=== PATIENT | female | born 1955 | race Caucasian/White ===

== ENCOUNTER 2023-12-24 13:45 | Inpatient (IN) | payer MEDICARE, SELFPAY ==
[2023-12-24] VITALS (12 sets, daily range): BP systolic 98–141; BP diastolic 35–85; BMI 35.5
[2023-12-24 08:41] LABS: % Basophils 0.4 % (0-2); % Eosinophils 0.4 % (0-6); % Immature Granulocytes 0.7 % (0-0.5); % Lymphocytes 19.5 % (20.5-51.1); % Monocytes 8.2 % (1.7-9.3); % Neutrophils 70.8 % (42.2-75.2); Absolute Basophils 0.1 10^3/uL (0-0.2); Absolute Eosinophils 0.1 10^3/uL (0-0.7); Absolute Immature Granulocytes 0.1 10^3/uL (0-0.05); Absolute Lymphocytes 2.2 10^3/uL (1.2-3.4); Absolute Monocytes 0.9 10^3/uL (0.1-0.6); Absolute Neutrophils 8.1 10^3/uL (1.4-6.5); Hematocrit 43.1 % (37.0-47.0); Hemoglobin 14.4 g/dL (12.0-16.0); Mean Corp Hgb Conc. 33.4 g/dL (33.0-37.0); Mean Corpuscular Hgb 29.7 pg (27.0-31.0); Mean Corpuscular Volume 88.9 fL (81.0-99.0); Mean Platelet Volume 8.1 fL (7.4-10.4); Nucleated Red Blood Cells % 0 %; Platelet Count 260 10^3/uL (130-400); Red Blood Cell Count 4.85 10^6/uL (4.20-5.40); Red Cell Dist. Width 12.1 % (11.5-14.5); White Blood Cell Count 11.5 10^3/uL (4.8-10.8)
--- NOTE | 2023-12-24 08:48 | ED.GENMED ---
History of Present Illness
General
Chief Complaint: Flank Pain
Source: patient
Time Seen by Provider: 12/24/23 08:16
Travel History
Have you had any contact with someone who has COVID-19?: No
Do you have any symptoms of coronavirus? Fever > 100 degrees, chills, cough, shortness of breath, sore throat, loss of taste or smell, muscle aches, or headache?: No
History of Present Illness
History of Present Illness:
Six 8-year-old female left flank pain for the past several days. She was seen at [facility] emergency department and had a negative CT abdomen pelvis noncontrast, and an unremarkable urinalysis. He was discharged with no further. Patient had fever
100.4 yesterday.
Past History
Past History
ED Past Medical History: GERD, HTN, Other (Diverticulosis, arthritis, anxiety, depression, UTI, GERD) and Other (Patent foramen ovale)
ED Past Surgical History: Gynecological, Orthopedic, Tonsilectomy and Other (Breast reduction, hysterectomy)
Social History
Tobacco: Non-smoker
Alcohol: None
Drug: None
Living: with family
Family History
Family History: Other (Noncontributory); Negative CAD or Cancer
Phy Exam
Physical Exam
Physical Exam:
Physical Exam
General: Appears uncomfortable, temperature 99.4 have a
Neck: supple. no meningeal signs. normal posterior pharynx
Heart: s1/s2 regular rate and rhythm, no murmur. equal radial
pulses.
HEENT: Pupils equal round reactive to light, EOMI
Lungs: no acute respiratory distress. clear bilaterally
Abdomen: normal bowel sounds. not tender. no CVAT
Neuro: alert and oriented. no focal neurological deficits cranial nerves II through XII intact
Skin: no rash
Psychiatric: well kept. interactive and cooperative
Extremities: no edema. no calf tenderness. negative homans. good distal pulses
Course
Orders/Labs/Results
Orders:
Orders
12/24/23 08:33
Complete Blood Count/With Diff Urgent
12/24/23 08:47
CT Abd/pel W Iv And Oral Contr Urgent
Comment:
Reason For Exam: left side abdominal pain, fever
Iohexol [Omnipaque] See Protocol PO NOW STA
12/24/23 09:00
Comprehensive Metabolic Panel Urgent
12/24/23 09:43
Morphine Sulfate 4 mg IV NOW STA
Ondansetron Injectable [Zofran] 4 mg IV NOW STA
12/24/23 09:57
Urinalysis Reflex To Culture Urgent
Date Specimen was Collected: 12/24/23
Time Specimen was Collected: 09:40
Urine Microscopic Reflex Cult Urgent
12/24/23 11:55
Morphine Sulfate 4 mg IV NOW STA
12/24/23 12:11
Heparin 8,000 units IV NOW STA
12/24/23 12:12
PTT Urgent
Comment: Obtain baseline before beginning heparin infusion if not already collected
Nursing to Place Non Medication Order As Directed
Physician Order: PTT 6 hours after initial start of Heparin infusion
12/24/23 12:15
Heparin 85414 Units/250 ml 25,000 units in 250 ml IV PER PROTOCOL
Weight to be used for heparin protocol in kilograms (kg):: 99.6
Protocol:: Vascular Surgery
PTT Goal Range to be used:: PTT 73 to 111 seconds
Order type:: Initial
INITIAL Infusion Dose (UNITS/KG/hr) & then follow protocol:: 18 units/kg/hr
Infusion Dose in UNITS/hr & then follow protocol (UNITS/hr):: 1,800
INFUSION RATE in mL/hr & then follow protocol (mL/hr):: 18
PTT less than or equal to 64 seconds:: Notify Ordering Provider. obtain orders for rate increase &
possible bolus
PTT 64.1 to 72.9 seconds:: Increase rate by 100 units/hr (+ 1 mL/hr)
PTT 73 to 111 seconds:: Target Range. No change in rate.
PTT 111.1 to 130.9 seconds:: Decrease rate by 100 units/hr (- 1 mL/hr)
PTT 131 to 199.9 seconds:: HOLD for 1 hour. Then decrease rate by 200 units/hr (- 2 mL/hr)
PTT greater than or equal to 200 seconds:: STOP INFUSION. Notify Ordering provider to obtain further orders.
Lab follow-up:: Each change, PTT q6h until 2 consecutive are therapeutic. Then PTT
daily.
Abnormal Lab Results
12/24/23 12/24/23 12/24/23
08:33 09:00 09:57
WBC 11.5 H 10^3/uL
(4.8-10.8)
Abs Immat Gran (auto) 0.1 H 10^3/uL
(0-0.05)
Absolute Neuts (auto) 8.1 H 10^3/uL
(1.4-6.5)
Absolute Monos (auto) 0.9 H 10^3/uL
(0.1-0.6)
Immature Gran % 0.7 H %
(0-0.5)
Lymphocytes % 19.5 L %
(20.5-51.1)
Chloride 109 H mmol/L
(98-107)
Glucose 102 H mg/dl
(70-99)
AST 52 H U/L
(14-36)
ALT 39 H U/L
(0-35)
Leukocyte Esterase Rfl Trace A
(Negative)
12/24/23 08:33
12/24/23 09:00
Vital Signs
Initial and Last Documented VS:
Initial Vital Signs
Temp Pulse Resp BP Pulse Ox
99.4 F 74 16 134/79 98
12/24/23 08:10 12/24/23 08:10 12/24/23 08:10 12/24/23 08:10 12/24/23 08:10
Last Documented Vital Signs
Temp Pulse Resp BP Pulse Ox
99.4 F 52 14 136/85 92
12/24/23 08:10 12/24/23 12:03 12/24/23 12:03 12/24/23 12:03 12/24/23 11:45
MDM/Problems Addressed
Differential Diagnosis Includes:
Kidney stone, diverticulitis, renal infarction
MDM/Problems Addressed:
68-year-old female with left renal infarction, history of PFO. Discussed with Dr. Cortez, vascular surgery, recommends admission for embolic workup to include CTA and echocardiogram. IV heparin.
Chronic conditions affecting care: Cardiomyopathy (PFO)
Acute Exacerbation and/or Progression of Chronic Illness: Cardiomyopathy (PFO)
*Radiology
Radiology exam reviewed: radiology read reviewed (CT abdomen pelvis shows left renal infarction)
*Pulse Oximetry
Patient hypoxic: no
*EKG
Interpreted by ED Provider?: NA
*Plug Paster Interpretation
Rate: normal
Interpretation: normal
Heart Rate: 75
Rhythm: sinus
*Critical Care Note
Total Time (30-74mins, 75-104mins- exclusive of procedures): 30
comment:
Critical care statement: A total of 30 minutes of critical care time was provided for this patient. This includes management of unstable vital signs, evaluation of the patient at bedside, reviewing the patient's pertinent medical records, discussion
with consultants, review of old EKGs and review of pertinent medical records. This time with separate from time utilized to perform the aforementioned documented procedures
Data Reviewed
Review of Other/Old Records Reveals: Radiology Studies (CT abdomen pelvis noncontrast performed at [facility] 2 days ago, negative)
Source: patient
Patient Management
Social determinants of health affecting care: Living situation
Discussion with other providers: Hospitalist and Handcrew Foreman (Vascular surgeon)
Escalation/DeEscalation of care consider admission/obs:
Admit indicated
ED Attending Note
-
Portions of this chart may have been created with voice recognition software.� Occasional wrong word or��sound alike� substitutions may have occurred due to the inherent limitations of voice recognition software.
Discharge Plan
Departure
Patient Disposition: Admit
Date of Disposition: 12/24/23
Time of Disposition: 11:57
Admit to: Telemetry
Presentation/result/management discussed w/ accepting MD/DO: Hospitalist
Patient with high blood pressure during this ER visit?: Yes
Condition: Good
Discharge Problem:
Renal infarction
Prescriptions:
No Action
topiramate 100 MG tablet
200 mg PO HS
citalopram 20 MG tablet
20 mg PO HS
trazodone 100 MG tablet
200 mg PO HS
albuterol sulfate 2.5 mg /3 mL (0.083 %) solution for nebulization
2.5 mg inhalation R Q6 PRN (Reason: sob/wheezing)
amlodipine 5 mg Tablet
7.5 mg PO HS
Rx Instructions:
TAKEN W/ 2.5MG = 7.5MG
Arnuity Ellipta 100 mcg/actuation blister with device
1 inh INHALATION R DAILY
metformin 500 mg tablet
500 mg PO DAILY
gabapentin 600 mg tablet
600 mg PO HS
pravastatin 40 mg tablet
40 mg PO HS
calcium carbonate-vitamin D3 [Calcium + D] 600 mg-5 mcg (200 unit) Tablet
1 tab PO BID
omeprazole 40 mg capsule,delayed release(DR/EC)
40 mg PO DAILY
aspirin 81 mg Tablet,Chewable
81 mg PO DAILY
ergocalciferol (vitamin D2) 1,250 mcg (50,000 unit) capsule
1,250 unit PO MO
ezetimibe 10 mg tablet
10 mg PO HS
Referrals:
Bradly Brown DO [Family Provider] -
Interventions
Interventions:
*General Assessment Last Done: 12/24/23 09:28
*Neglect/Abuse Screening Last Done: 12/24/23 10:21
ED- Fall Risk Assessment Last Done: 12/24/23 09:28
*ED COVID-19 Vaccine History Last Done: 12/24/23 08:10
XT-Bnsepu-Kxfbefbamd Assessment Last Done: 12/24/23 09:28
ED-Female Genitourinary Assessment Last Done: 12/24/23 09:28
Discharge Date and Time
Print Language: KAZAKH
[2023-12-24] MEDS: OMNIPAQUE 50 ML PO (08:57)
[2023-12-24 09:26] LABS: ALT (SGPT) 39 U/L (0-35); AST (SGOT) 52 U/L (14-36); Albumin 4.8 g/dl (3.5-5.0); Alkaline Phosphatase 66 U/L (38-126); Blood Urea Nitrogen 16 mg/dl (7-17); Calcium 9.7 mg/dl (8.4-10.2); Carbon Dioxide 22 mmol/L (22-30); Chloride 109 mmol/L (98-107); Glucose 102 mg/dl (70-99); Potassium 4.1 mmol/L (3.5-5.1); Sodium 136 mmol/L (135-145); Total Bilirubin 0.7 mg/dl (0.2-1.3); Total Protein 7.6 g/dl (6.3-8.2); eGFR > 60.00
[2023-12-24] MEDS: ZOFRAN 4 MG IV ×2 (09:52→16:55)
[2023-12-24] MEDS: MORPHINE SULFATE 4 MG IV ×2 (09:53→12:56)
[2023-12-24 10:09] LABS: Urine Albumin Negative (Neg - Trace); Urine Bilirubin Negative (Negative); Urine Character Clear (Clear); Urine Color Yellow; Urine Glucose Negative (Negative); Urine Ketone Negative (Negative); Urine Leukocyte Trace (Negative); Urine Nitrite Negative (Negative); Urine Occult Blood Negative (Negative); Urine Urobilinogen Negative (Neg - 1+)
[2023-12-24 10:43] LABS: Urine Red Blood Cell 0-2 /HPF (0-2)
--- NOTE | 2023-12-24 12:22 | HPS.HSE ---
Family Physician
-
Family Physician: Bradly Brown
Chief Complaint
-
left flank pain
History of Present Illness
68 year old with PMH for peripheral artery disease, diverticulitis, sigmoid colon abscess, GERD, patent foramen ovale, asthma, depression presented to us with left flank pain for past few days. Patient also complained of left-sided abdominal pain
associate with nausea. Patient denied any vomiting, diarrhea. Patient stated fever of 100.4. Took Tylenol. Patient also took Advil, with no relief in his symptoms. Patient also complaining of headache. Denies dizziness or syncopal episode
patient denied runny nose,. Cough. Patient denied any dysuria, hematuria.
CT abdomen pelvis with impression of 3 cm acute/subacute infarct in the posterior interpolar aspect of the left kidney. No evidence of diverticulitis. There is rectosigmoid anastomosis.
Patient started on heparin drip. Vascular surgery consult
Medical History
Past Medical History
Past Medical History: Reports Other
Additional Past Medical History:
peripheral artery disease, diverticulitis, sigmoid colon abscess, GERD, patent foramen ovale, asthma, depression
Past Surgical History: Reports Other
Additional Past Surgical History:
Tonsillectomy
Breast reduction
Hysterectomy
Bowel resection
Right knee replacement
Multiple bilateral ankle surgeries
Social History
Tobacco: Non-smoker
Alcohol: None
Drug: None
Family History
Family History: Not pertinent
Allergies / Home Medications
Allergies reflects when Allergies were last updated in [employer].
Home Medications with original date entered in [employer]
Allergy/Medication List:
Allergies
Allergy/AdvReac Type Severity Reaction Status Date / Time
pollen extracts Allergy SEASONAL-CO Verified 12/24/23 08:13
UGHING
Home Medications
topiramate 100 mg tablet 100 mg PO HS Neurological Condition 04/24/12
citalopram 20 mg tablet 20 mg PO HS Mental Health/Anxiety 07/05/18
trazodone 100 mg tablet 200 mg PO HS Sleep 07/05/18
albuterol sulfate 2.5 mg/3 mL (0.083 %) solution for nebulization 2.5 mg inhalation R Q6 PRN sob/wheezing 07/16/22
amlodipine 5 mg tablet 5 mg PO HS Blood pressure 07/16/22
fluticasone furoate 100 mcg/actuation blister powder for inhalation (Arnuity Ellipta) 1 inh inhalation R DAILY Lung/breathing issues 07/16/22
aspirin 81 mg chewable tablet 81 mg PO DAILY 12/24/23
calcium carbonate 600 mg-vitamin D3 5 mcg (200 unit) tablet 1 tab PO BID 12/24/23
ergocalciferol (vitamin D2) 1,250 mcg (50,000 unit) capsule 1,250 unit PO MO Supplement 12/24/23
ezetimibe 10 mg tablet 10 mg PO HS 12/24/23
gabapentin 600 mg tablet 600 mg PO HS 12/24/23
metformin 500 mg tablet 500 mg PO DAILY 12/24/23
omeprazole 40 mg capsule,delayed release 40 mg PO DAILY 12/24/23
pravastatin 40 mg tablet 40 mg PO HS 12/24/23
Review of Systems
-
Constitutional: Reports No Symptoms
EENT: Reports No Symptoms
Respiratory: Reports No Symptoms
Cardiac: Reports No Symptoms
Abdomen/GI: Reports Abdominal Pain and Nausea
: Reports Flank Pain
Musculoskeletal: Reports No Symptoms
Skin: Reports No Symptoms
Neurological: Reports No Symptoms
Endocrine: Reports No Symptoms
Hematologic/Lymphatic: Reports No Symptoms
Psych: Reports No Symptoms
Physical Exam
Vital Signs
Vital Signs
Temp Pulse Resp BP Pulse Ox
99.4 F 52 14 136/85 92
12/24/23 08:10 12/24/23 12:03 12/24/23 12:03 12/24/23 12:03 12/24/23 11:45
Physical Exam
General: Well Developed, Well Nourished and No Apparent Distress
HEENT: NormoCephalic, Moist mucous membranes and Atraumatic
Respiratory: Clear
Cardiac: S1/S2 and Regular Rhythm; No Murmur or Rub
GI: Soft, Non Tender, Non Distended and Normal Bowel Sounds; No Organomegaly
Rectal: Deferred by Provider
Musculoskeletal: No Clubbing, No Cyanosis and No Edema
Skin: No Rash
Neuro: AO x 3 and Nonfocal/grossly intact
Psych: Calm
Laboratory Results
-
12/24/23 08:33
12/24/23 09:00
Laboratory Results
Total Bilirubin 0.7 mg/dl (0.2-1.3) 12/24/23 09:00
AST 52 U/L (14-36) H 12/24/23 09:00
ALT 39 U/L (0-35) H 12/24/23 09:00
Alkaline Phosphatase 66 U/L (38-126) 12/24/23 09:00
Data Reviewed
-
CT Scan: Report Reviewed by me
Lab Data: Labs Reviewed by me
Impression/Plan
-
#left renal infract
-CT of abdomen pelvis with impression of 3 cm acute/subacute renal infarct in the posterior interpolar aspect of the left kidney.Diverticuli are present in the colon with no CT evidence of diverticulitis.There is rectosigmoid anastomosis
-Heparin infusion continued
-Vascular surgery consulted
-will obtain CT chest tomorrow
-Dilaudid prn for pain
#leukocytosis likely stress reaction
-UA negative.
-ctm
# LFT elevation
-AST 52, ALT 39
-trend LFT
-continue to monitor
# History of PFO
-follows cardiology at [facility]
-cardiology consulted
# History of asthma
-Not in acute exacerbation
-Nebulizers from home will be continued
-Breo continued
# GERD
-PPI continued
# Essential hypertension
-Blood pressure stable
-Norvasc continued
# History of anxiety and depression/insomnia
-We will continue citalopram trazodone and Topamax
# Hyperlipidemia
-Zetia continued
-Pravastatin continued
# Type 2 diabetes
-Hold metformin
-Sliding scale
-Carb controlled diet
# Full code
# DVT prophylaxis
-Heparin drip
[2023-12-24] MEDS: HEPARIN 8000 UNITS IV (12:57)
[2023-12-24] MEDS: HEPARIN 25000 UNITS/250 ML IV (12:59)
[2023-12-24 13:26] LABS: APTT 27.8 Sec (23.4-35.0)
--- NOTE | 2023-12-24 13:26 | W.PN.UPDATE ---
Update Note
Progress Note Update
Seen and examined and discussed with nurse practitioner in detail I am in agreement with plan and management mentioned by physician housing assistant property manager
Seen and examined, awake and alert, complaining of left flank pain, started earlier, denies any any chest pain or shortness of breath or cough or congestion, she has been having on and off fever, CT showed left renal infarction. She does have known
history of PFO diagnosed a year ago.
Vital signs reviewed
Physical exam:
General: Awake, alert and oriented x3, not in distress and holds appropriate conversation.
HEENT: No active discharge, ecchymosis or bruising, moist lips, tongue and mucous membrane.
Eyes: No discharge or red conjunctiva, no nystagmus, pupils are reactive and equal
Neck:Supple, no JVD no bruit no goiter.
Respiratory: Normal AP contour and diameter, normal chest wall movement, normal respiratory effort, no respiratory distress,
Lungs: Good air entry bilaterally, no wheezing or rhonchi, no rales or crackles
Heart: S1, S2 regular, normal rate, no added sound.
Gastrointestinal: Left side and left flank tenderness, positive bowel sounds, soft, nontender, no guarding or rigidity or organomegaly
Musculoskeletal: , no chest wall abnormality or tenderness. All joints and extremities have good range of motion, no muscle tenderness or any joint swelling or tenderness.
Extremities: No pitting edema, good peripheral pulses, good range of motion
Skin: Warm and dry, no ulceration, normal color.
Neurological: Awake, alert and oriented x3, no facial droop, moves extremities well speech clear and comprehensive, good muscle tone,
Psychiatric: Normal mood, normal thought and judgment, normal affect,
Workup including labs, imaging, EKG and archive reviewed.
Assessment and plan:
Renal infarction, with known history of PFO,
Vascular contacted they recommended heparin drip and get a CTA chest will get a CT [address] abdominal pelvis using IV contrast
IV fluid
Pain medication with Dilaudid
Monitor for bleeding
History of PFO, patient she was diagnosed years ago she is only on aspirin
She asked to see lap winding machine operator year history of a lap winding machine operator in [place].
Hypertension
Continue amlodipine
The rest of the assessment and management as per physician housing assistant property manager note
All discussed with the patient and the family
Discussed with physician housing assistant property manager
--- NOTE | 2023-12-24 14:01 | CON.CAR ---
Addendum entered and electronically signed by Todd Christie MD 12/24/23 15:45:
I saw and examined the patient.
The Curer Foam Rubber's note was reviewed and I agree with the note.
Comment:
GEN: Mild distress, awake, Ox3
HEENT: supple, anicteric, mmm
LUNGS: CTA, no wheezes/rales
CV: Reg, S1/S2, 1/6 syst LSB, no gallop
ABD: soft, BS+, NT/ND, + left flank pain
EXT: No edema
NEURO: Gross non-focal
SKIN: No rash
Plan:
She has a past medical history of hypertension, hyperlipidemia, patent foramen ovale, and possible TIA in the past. She presents with acute left flank pain for several days. CT scan with found to have an acute/subacute renal infarct in the left
kidney. She was previously followed both at [place] and at [place]. She is now following at [place]. DELISA from earlier this year revealed no left atrial appendage thrombus with a small PFO. Previous monitoring has not revealed any atrial
fibrillation.
With a new diagnosis of left renal infarct, there is a high index of suspicion of this being an embolic event. Continue IV heparin. Will discuss case with vascular surgery to see if there is any intervention needed.
Will check repeat transthoracic echo.
Would likely start full anticoagulation for a period of time and have her follow-up with her primary shank burnisher at [facility].
In general, guidelines would recommend against PFO closure and somewhat above the age of 60. Will discuss with interventional team.
Continue risk factor modification. Continue aspirin, amlodipin. Check lipids. Goal LDL should be 70 or below. Continue Zetia and pravastatin for now.
Original Note:
Consultation
Consultation Request
Date/Time Consultation Requested: 12/24/2023
Date/Time Consultation Performed: 12/24/2023
Requesting Provider: Dr. Fan
Performing Provider: Dr. Christie
Reason for Consultation: PFO, renal infarct
Medical History
-
History of Present Illness:
HPI: Riri is a 68 year old female with PMH of hypertension, hyperlipidemia, PFO, GERD, asthma, and depression/anxiety who presented to [facility] for evaluation of L flank pain which started a few days ago. She also notes she has felt generally unwell
with malaise for the past week or so. She reports she initially went to [facility] for evaluation and had workup that was negative, and she was discharged. Due to progressive/persistent symptoms, she came to [facility] for further evaluation. In
ER, she was found to have 3 mm acute/subacute renal infarct in the posterior interpolar aspect of the left kidney on CT scan. She was started on heparin drip and vascular surgery was consulted. Given her history of PFO, cardiology consulted in
addition. At this time, she reports she is feeling well overall. Denies chest pain, palpitations, dizziness, lightheadedness, LE edema, or SOB.
PMH:
Hypertension
Hyperlipidemia
PFO
GERD
Asthma
Depression/anxiety
Past Medical History
Past Medical History: Other (In HPI)
Past Surgical History: Tonsilectomy and Other (ORIF right ankle, hysterectomy, colectomy, R TKA, )
Social History
Tobacco: Non-Smoker
Alcohol: None
Drug: None
Personal: Single
Living: Alone
Employment: Retired
Family History
Family History: Reviewed & Not Pertinent
Allergies / Home Medications
Allergy/AdvReac Type Severity Reaction Status Date / Time
pollen extracts Allergy SEASONAL-CO Verified 12/24/23 08:13
UGHING
�Medication �Instructions �Recorded �Confirmed �Type
topiramate 100 mg tablet 200 mg PO HS Neurological Condition 04/24/12 12/24/23 History
citalopram 20 mg tablet 20 mg PO HS Mental Health/Anxiety 07/05/18 12/24/23 History
trazodone 100 mg tablet 200 mg PO HS Sleep 07/05/18 12/24/23 History
albuterol sulfate 2.5 mg/3 mL 2.5 mg inhalation R Q6 PRN 07/16/22 12/24/23 History
(0.083 %) solution for nebulization sob/wheezing
amlodipine 5 mg tablet 7.5 mg PO HS Blood pressure 07/16/22 12/24/23 History
fluticasone furoate 100 1 inh inhalation R DAILY 07/16/22 12/24/23 History
mcg/actuation blister powder for Lung/breathing issues
inhalation (Arnuity Ellipta)
aspirin 81 mg chewable tablet 81 mg PO DAILY 12/24/23 12/24/23 History
calcium carbonate 600 mg-vitamin 1 tab PO BID 12/24/23 12/24/23 History
D3 5 mcg (200 unit) tablet
ergocalciferol (vitamin D2) 1,250 1,250 unit PO MO Supplement 12/24/23 12/24/23 History
mcg (50,000 unit) capsule
ezetimibe 10 mg tablet 10 mg PO HS 12/24/23 12/24/23 History
gabapentin 600 mg tablet 600 mg PO HS 12/24/23 12/24/23 History
metformin 500 mg tablet 500 mg PO DAILY 12/24/23 12/24/23 History
omeprazole 40 mg capsule,delayed 40 mg PO DAILY 12/24/23 12/24/23 History
release
pravastatin 40 mg tablet 40 mg PO HS 12/24/23 12/24/23 History
Review of Systems
-
History Source: Patient
All other systems: Negative unless noted
Physical Exam
Vital Signs
Temp Pulse Resp BP Pulse Ox
99.4 F 69 13 141/85 95
12/24/23 08:10 12/24/23 13:00 12/24/23 13:00 12/24/23 13:00 12/24/23 12:23
Lab Results
12/24/23 08:33
12/24/23 09:00
Physical Exam
General: Well Developed, Well Nourished and No Apparent Distress
HEENT: Normocephalic, Anicteric and Moist Mucous Membranes
Respiratory: Clear and Non Labored Respirations
Cardiac: S1/S2 and Regular Rhythm
Musculoskeletal: No Clubbing, No Cyanosis and No Edema
Skin: Warm and Dry
Neuro: AO x 3 and Nonfocal/Grossly Intact
Psych: Calm
Impression / Plan
-
PCP: Dr. Bradly Brown
Field Foreman: Dr. Gavin Taylor ([facility] Cardiology [phone])
Impression:
Presented with L flank pain
L renal infarct
PFO
Hypertension
Hyperlipidemia
GERD
Asthma
Depression/anxiety
Echo 08/06/2022: EF 55-60%, mild TR, enlarged RV, interatrial septum is hypermobile, bubble study positive.
DELISA @[facility] 10/13/2022: EF 60%, normal RV, +PFO, no CESIA thrombus
Cardiac MRI 10/14/2022: Interatrial septum aneurysm is present, with broad based bulge from the septum into the adjacent L atrium. Subtle flow across the interatrial septum suggested, but difficult to determine direction of flow. Given history of
positive bubble study, findings would suggest a patent foramen ovale. Grossly normal wall motion and contractility of the left ventricle. EF 50%. No evidence for abnormal enhancement of the myocardium.
Plan:
-Presented with L flank pain. Found to have L renal infarct.
-Continue heparin gtt for now. Has been on aspirin 81mg daily as OP, would continue.
-Vascular surgery consulted by primary service. Will discuss anticoagulation recommendations w/ vascular surgery.
-Plan for CT of chest in AM.
-EKG SR. No h/o afib and no arrhythmia noted on telemetry.
-BP stable. Continue amlodipine.
-Records requested and reviewed from [facility] cardiology. She had recent carotid duplex 12/15/23 which showed 1-15% stenosis bilaterally.
-Recent LE US 11/23/2023 negative for DVT, would repeat this admission.
HPI: Riri is a 68 year old female with PMH of hypertension, hyperlipidemia, PFO, GERD, asthma, and depression/anxiety who presented to [facility] for evaluation of L flank pain which started a few days ago. She also notes she has felt generally unwell
with malaise for the past week or so. She reports she initially went to [facility] for evaluation and had workup that was negative, and she was discharged. Due to progressive/persistent symptoms, she came to [facility] for further evaluation. In
ER, she was found to have 3 mm acute/subacute renal infarct in the posterior interpolar aspect of the left kidney on CT scan. She was started on heparin drip and vascular surgery was consulted. Given her history of PFO, cardiology consulted in
addition. At this time, she reports she is feeling well overall. Denies chest pain, palpitations, dizziness, lightheadedness, LE edema, or SOB.
Data Reviewed
-
EKG: Tracing Personally Visualized and interpreted
CT Scan: Report Reviewed by me
Labs: Labs Reviewed by me
Old Records: Requested and Reviewed
--- NOTE | 2023-12-24 16:26 | W.PN.UPDATE ---
Addendum entered and electronically signed by Nawaf Mckeon MD 12/24/23 16:32:
Reviewed fine cut CT images sent to PACS (1mm). Slightly grainy images (not timed as CTA), but i do NOT see any L renal artery dissection.
Recommend anticoag/cardiology recs re: PFO and possible source of renal infarction.
Rec also LE venous duplex to r/o DVT (as potential paradoxical emoblus source through PFO)
Nothing else to offer from vascular perspective - will sign off. Call w questions.
Original Note:
Update Note
Progress Note Update
Seen and evaluated in ED with JUAN J Huggins.
Full c/s to follow.
L flank pain acutely 2 days ago.
Prior med hx new onset DM (metformin), chronic controlled HTN. No increased HTN with recent flank pain.
CT scan reviewed - L renal infarct.
To my interpretation, there appears to be a subtle dissection L renal artery.
Plan/ L renal infarct, to my interpretation there is a subtle L renal artery dissection just beyond origin.
Need fine cuts CT to eval. I have discussed with central supply tech - they will push over fine cuts scan to PACS so that i can review.
Agree with anticoag for now.
--- NOTE | 2023-12-24 16:46 | CON.VAS ---
Consultation
Consultation Request
Date/Time Consultation Performed: 12/24/2023 1630
Requesting Provider: Hospitalist
Performing Provider: Mireille Huggins, JUAN J-C for Nawaf Mckeon MD
Reason for Consultation: Left renal infarct
Medical History
-
Chief Complaint: Left flank pain
History of Present Illness:
This is a 68-year-old female with significant past medical history for PFO , PAD, diverticulitis, DM, sigmoid colon abscess, GERD, asthma, and depression who presents to ED with reports of left flank pain ongoing for the past roughly 2 days with
accompanying nausea, fever, and general feeling of malaise. CT scan reveals left renal infarct, vascular surgery consulted.
Past Medical History
Past Medical History: Other (PFO , PAD, diverticulitis, DM, sigmoid colon abscess, GERD, asthma, and depression)
Past Surgical History: Other (Tonsillectomy, Breast reduction, Hysterectomy, Bowel resection, Right knee replacement, Multiple bilateral ankle surgeries)
Social History
Tobacco: Non-Smoker
Alcohol: None
Drug: None
Allergies / Home Medications
Allergy/AdvReac Type Severity Reaction Status Date / Time
pollen extracts Allergy SEASONAL-CO Verified 12/24/23 08:13
UGHING
�Medication �Instructions �Recorded �Confirmed �Type
topiramate 100 mg tablet 200 mg PO HS Neurological Condition 04/24/12 12/24/23 History
citalopram 20 mg tablet 20 mg PO HS Mental Health/Anxiety 07/05/18 12/24/23 History
trazodone 100 mg tablet 200 mg PO HS Sleep 07/05/18 12/24/23 History
albuterol sulfate 2.5 mg/3 mL 2.5 mg inhalation R Q6 PRN 07/16/22 12/24/23 History
(0.083 %) solution for nebulization sob/wheezing
amlodipine 5 mg tablet 7.5 mg PO HS Blood pressure 07/16/22 12/24/23 History
fluticasone furoate 100 1 inh inhalation R DAILY 07/16/22 12/24/23 History
mcg/actuation blister powder for Lung/breathing issues
inhalation (Arnuity Ellipta)
aspirin 81 mg chewable tablet 81 mg PO DAILY 12/24/23 12/24/23 History
calcium carbonate 600 mg-vitamin 1 tab PO BID 12/24/23 12/24/23 History
D3 5 mcg (200 unit) tablet
ergocalciferol (vitamin D2) 1,250 1,250 unit PO MO Supplement 12/24/23 12/24/23 History
mcg (50,000 unit) capsule
ezetimibe 10 mg tablet 10 mg PO HS 12/24/23 12/24/23 History
gabapentin 600 mg tablet 600 mg PO HS 12/24/23 12/24/23 History
metformin 500 mg tablet 500 mg PO DAILY 12/24/23 12/24/23 History
omeprazole 40 mg capsule,delayed 40 mg PO DAILY 12/24/23 12/24/23 History
release
pravastatin 40 mg tablet 40 mg PO HS 12/24/23 12/24/23 History
Review of Systems
-
History Source: Patient
Constitutional: Reports No Symptoms
EENT: Reports No Symptoms
Respiratory: Reports No Symptoms
Cardiac: Reports No Symptoms
Abdomen/GI: Reports Abdominal Pain and Nausea
: Reports Flank Pain (Left-sided)
Musculoskeletal: Reports No Symptoms
Skin: Reports No Symptoms
Neurological: Reports No Symptoms
Endocrine: Reports No Symptoms
Physical Exam
Vital Signs
Temp Pulse Resp BP Pulse Ox
99.2 F 73 14 114/77 95
12/24/23 14:47 12/24/23 15:15 12/24/23 15:15 12/24/23 15:00 12/24/23 12:23
Lab Results
12/24/23 08:33
12/24/23 09:00
Physical Exam
General: No Apparent Distress
HEENT: Normocephalic, Anicteric and Atraumatic
Respiratory: Non Labored Respirations
Cardiac: Negative JVD
GI: Soft, Non Distended and Tender (Left upper quadrant and left flank)
Musculoskeletal: No Edema
Skin: Warm and Dry
Neuro: AO x 3
Assessment / Plan
-
Assessment: 68-year-old female with left renal infarct
Plan:
Fine cut CT images sent to PACS (1mm) reviewed by Dr. Nawaf Mckeon. Slightly grainy images (not timed as CTA), but i do NOT see any L renal artery dissection. Recommend anticoag/cardiology recs re: PFO and possible source of renal infarction. Rec
also LE venous duplex to r/o DVT (as potential paradoxical emoblus source through PFO). Nothing else to offer from vascular perspective - will sign off. Call w questions
[2023-12-24] MEDS: DILAUDID 0.5 MG IV (16:55)
--- NOTE | 2023-12-24 16:59 | PTCARENOTE ---
Heparin gtt verified with Reyna Pisano Rn upon arrival to [address] [place] [id number]
--- NOTE | 2023-12-24 17:12 | PTCARENOTE ---
Pt arrived to 2S. Ambulated to bed with assistance from NSG staff. Pt c/o headache and L flank / PRN Dilaudid provided. Pt also with c/o, dry heaving and 'spit up' a small amount of clear liquid, PRN zofran provided. Heparin gtt infusing per
order. Bed locked and in the lowest position, safety maintained. VAT team to bedside to place 2nd line for IVF. Oriented to room and call tamez.
[2023-12-24 17:22] LABS: Glucose - Point of Care 117 mg/dl (70-99)
[2023-12-24] MEDS: NSS 1000 IV (17:32)
--- NOTE | 2023-12-24 17:41 | PTCARENOTE ---
Pt with nausea and vomiting unrelieved by zokeisha. Dr Fan notified. No new orders at this time. Care remains ongoing.
[2023-12-24 20:02] LABS: APTT > 200 Sec (23.4-35.0)
[2023-12-24] MEDS: SENOKOT 8.59999999999999964 MG PO (20:49)
[2023-12-24] MEDS: COMPAZINE 10 MG IV (20:50)
[2023-12-24] MEDS: DILAUDID 1 MG IV (20:51)
[2023-12-24] MEDS: NEURONTIN 600 MG PO (21:00)
[2023-12-24] MEDS: CELEXA 20 MG PO (21:01)
[2023-12-24] MEDS: PRAVACHOL 40 MG PO (21:01)
[2023-12-24] MEDS: TOPAMAX 200 MG PO (21:01)
[2023-12-24] MEDS: ZETIA 10 MG PO (21:02)
[2023-12-24 21:46] LABS: Glucose - Point of Care 132 mg/dl (70-99)
[2023-12-24 22:20] LABS: APTT 53.2 Sec (23.4-35.0)
[2023-12-24] MEDS: NORVASC 7.5 MG PO (22:21)
[2023-12-24] MEDS: DESYREL 200 MG PO (22:24)
[2023-12-24] MEDS: OSCAL 500 + D PO ×2 (22:25→22:33)
--- NOTE | 2023-12-24 23:26 | PTCARENOTE ---
Critical PTT of >200 received at 20:09, stopped Heparin drip at 20:10, Notified JUAN J Trujillo via [place] [employer]. Spoke to JUAN J Trujillo at 21:35, told to notify the patient's Vascular doctor senior clinical consultant. Called Dr. Junior at 21:40 ordered to continue
holding Heparin and place a PTT to be drawn at 22:10, then call him with the results. The PTT resulted at 53.2, called Dr. Junior at 22:53, he ordered the Heparin be restarted at 16mL/hr and have another PTT drawn in 4 hours (02:55), follow
Heparin protocol with PTT results
;40. He gave an or
[2023-12-25] MEDS: TYLENOL 650 MG PO (03:25)
[2023-12-25] MEDS: COMPAZINE 10 MG IV ×2 (03:25→22:25)
[2023-12-25 03:30] LABS: APTT 93.8 Sec (23.4-35.0)
[2023-12-25 03:39] LABS: ALT (SGPT) 37 U/L (0-35); AST (SGOT) 46 U/L (14-36); Albumin 4.2 g/dl (3.5-5.0); Alkaline Phosphatase 64 U/L (38-126); Blood Urea Nitrogen 13 mg/dl (7-17); Calcium 9.2 mg/dl (8.4-10.2); Carbon Dioxide 24 mmol/L (22-30); Chloride 104 mmol/L (98-107); Direct Bilirubin 0.4 mg/dl (0.0-0.4); Estimated Creatinine Clearance 110 ml/min; Glucose 121 mg/dl (70-99); Sodium 136 mmol/L (135-145); Total Bilirubin 0.9 mg/dl (0.2-1.3); Total Protein 6.8 g/dl (6.3-8.2); eGFR > 60.00
[2023-12-25] MEDS: NSS 1000 IV ×2 (03:45→18:41)
[2023-12-25 03:59] VITALS: BP 109/63
[2023-12-25] MEDS: DILAUDID 1 MG IV ×2 (05:49→22:25)
[2023-12-25] MEDS: HEPARIN 25000 UNITS/250 ML IV ×2 (06:01→21:07)
[2023-12-25 07:48] VITALS: BP 109/56
[2023-12-25] MEDS: FLOVENT 44 MCG INHALER 2 PUFF INH ×2 (08:11→19:17)
--- NOTE | 2023-12-25 08:38 | W.PN.HOSP.TC ---
Today's Communication/Plan
-
Obtain echocardiogram.
Check ultrasound of the legs.
Will consider switching from IV heparin to Eliquis in next 24 hours
DC planning
Assessment / Plan
Assessment / Plan
# Acute/subacute left renal infarct in the posterior interpolar aspect of the left kidney size about 3 cm. Ongoing evaluation for etiology. With PFO concern for paradoxical emboli. No evidence of arterial dissection of the renal artery. Patient
initiated on anticoagulation. Check antiphospholipid antibodies. Patient advised also to follow-up with hematology as an outpatient to rule out any thrombophilia. Primary concern is of PFO. Echo pending today. Check an ultrasound of the leg to
rule out any paradoxical emboli. I do not see a reason for CT chest-no chest pain currently short of breath at rest. Will change the management after his PE.
# History of PFO
-follows cardiology at [facility]
-cardiology consulted
#leukocytosis-mild. No fever. Repeat CBC.
-UA negative.
-ctm
# LFT elevation
-AST 52, ALT 39
-trend LFT
-continue to monitor
-CT of the abdomen pelvis shows liver/pancreas/gallbladder all within normal limits.
# History of asthma
-Not in acute exacerbation
-Nebulizers from home will be continued
-Breo continued
# GERD
-PPI continued
# Essential hypertension
-Blood pressure stable
-Norvasc continued
# History of anxiety and depression/insomnia
-We will continue citalopram trazodone and Topamax
# Hyperlipidemia
-Zetia continued
-Pravastatin hold due to elevated LFTs
# Type 2 diabetes
-Hold metformin
-Sliding scale
-Carb controlled diet
# Full code
# DVT prophylaxis
-Heparin drip
Total time spent on today's encounter was 52 minutes which included time spent in counseling the patient/ regarding diagnosis and treatment plan as listed above, goals of care, and symptom management. Case was discussed with nursing staff,
specialists, All labs and imaging personally reviewed by me. Remainder the time spent in detailed review of previous records, lab data, imaging, and other medical provider documentation.
Anticipated Discharge: Within 24 hours
Subjective/Interval History
-
Date of Service: December 25, 2023
Having a headache today , generalized. Thinks because of not eating and missing coffee. She was feeling nauseous before coming in. Not nauseous this morning. She is going to order some breakfast and see.
No abdominal pain.
Denies shortness of breath at rest. No chest pain.
Objective Data
-
Labs:
Laboratory Results
12/24/23 12/25/23 12/25/23
21:58 02:53 08:53
APTT 53.2 H 93.8 H Pending
Sodium 136
Potassium 4.0
Chloride 104
Carbon Dioxide 24
BUN 13
Creatinine 0.6
Glucose 121 H
Calcium 9.2
Total Bilirubin 0.9
AST 46 H
ALT 37 H
Alkaline Phosphatase 64
Vital Signs:
Vital Signs
Temp Pulse Resp BP Pulse Ox
98.1 F 76 15 109/63 97
12/25/23 03:59 12/25/23 08:15 12/25/23 08:15 12/25/23 03:59 12/25/23 08:15
I&O
12/24/23 12/25/23 12/26/23
06:59 06:59 06:59
Intake Total 1156 / 1156
Output Total 200 / 200
Balance 956 / 956
Review of Systems
-
Constitutional: Denies Fever
EENT: Denies Sore Throat
Respiratory: Denies Cough
Abdomen/GI: Denies Abdominal Pain or Diarrhea
Neuro: Reports Headache
Physical Exam
-
General: No Apparent Distress
HEENT: Moist Mucous Membranes
Respiratory: Clear to Auscultation
Cardiac: Regular Rhythm and S1/S2; Negative Tachycardic
GI: Soft
Neuro: AO x 3
Data Reviewed
-
Labs: Labs Reviewed by me
[2023-12-25 08:42] LABS: Glucose - Point of Care 105 mg/dl (70-99)
[2023-12-25 09:23] LABS: APTT 93.7 Sec (23.4-35.0)
--- NOTE | 2023-12-25 09:44 | W.PN.CARDCBS ---
Addendum entered and electronically signed by James Xiao MD 12/25/23 12:27:
Patient seen and examined
Reviewed echocardiogram demonstrating normal function and no significant valvular disease.
Sinus rhythm noted here
I communicated with Dr. Taylor who will follow-up with the patient as an outpatient as she has followed up there as an outpatient.
I communicated with the patient and outpatient crane hoist or lift operator to perform longer-term ambulatory monitoring to look for atrial fibrillation and the patient will discuss with her outpatient crane hoist or lift operator whether PFO closure makes sense if the ambulatory
monitor is negative for atrial fibrillation
Examination:
HEENT normocephalic atraumatic
JVP 6
Cor regular
Lungs clear to auscultation bilaterally
Abdomen soft nontender positive bowel sounds
No extreme edema
PCP: Dr. Bradly Brown
Motor Coach Driver: Dr. Gavin Taylor ([facility] [phone])
Impression:
Presented with L flank pain
L renal infarct
PFO
Hypertension
Hyperlipidemia
GERD
Asthma
Depression/anxiety
Echo 08/06/2022: EF 55-60%, mild TR, enlarged RV, interatrial septum is hypermobile, bubble study positive.
Echo 12/25/2023: Study completed, report pending
DELISA @[facility] 10/13/2022: EF 60%, normal RV, +PFO, no CESIA thrombus
Cardiac MRI 10/14/2022: Interatrial septum aneurysm is present, with broad based bulge from the septum into the adjacent L atrium. Subtle flow across the interatrial septum suggested, but difficult to determine direction of flow. Given history of
positive bubble study, findings would suggest a patent foramen ovale. Grossly normal wall motion and contractility of the left ventricle. EF 50%. No evidence for abnormal enhancement of the myocardium.
Plan:
-Presented with L flank pain. Found to have L renal infarct. Vascular surgery evaluated and no evidence of renal artery dissection noted. Anticoagulation recommended.
-On heparin gtt for now, plan is to transition to Eliquis 5mg BID. Case management assessing cost.
-LE US negative for DVT.
-Echo completed 12/24. Report pending.
-No h/o afib. May consider OP monitoring.
-BP stable on amlodipine.
-Follow up w/ primary crane hoist or lift operator, Dr. Taylor. I communicated with him regarding long-term ambulatory monitor and evaluation for PFO closure if she has negative monitoring for atrial fibrillation. Patient understands and her outpatient
crane hoist or lift operator also agrees with plan.
Original Note:
Today's Communication / Plan
-
Transition to oral anticoagulation
Follow up with primary crane hoist or lift operator
Impression / Plan
-
PCP: Dr. Bradly Brown
Motor Coach Driver: Dr. Gavin Taylor ([facility] [phone])
Impression:
Presented with L flank pain
L renal infarct
PFO
Hypertension
Hyperlipidemia
GERD
Asthma
Depression/anxiety
Echo 08/06/2022: EF 55-60%, mild TR, enlarged RV, interatrial septum is hypermobile, bubble study positive.
Echo 12/25/2023: Study completed, report pending
DELISA @[facility] 10/13/2022: EF 60%, normal RV, +PFO, no CESIA thrombus
Cardiac MRI 10/14/2022: Interatrial septum aneurysm is present, with broad based bulge from the septum into the adjacent L atrium. Subtle flow across the interatrial septum suggested, but difficult to determine direction of flow. Given history of
positive bubble study, findings would suggest a patent foramen ovale. Grossly normal wall motion and contractility of the left ventricle. EF 50%. No evidence for abnormal enhancement of the myocardium.
Plan:
-Presented with L flank pain. Found to have L renal infarct. Vascular surgery evaluated and no evidence of renal artery dissection noted. Anticoagulation recommended.
-On heparin gtt for now, however plan is to transition to Eliquis 5mg BID. Case management assessing cost.
-LE US negative for DVT.
-Echo completed 12/24. Report pending.
-No h/o afib. May consider OP monitoring.
-BP stable on amlodipine.
-Follow up w/ primary crane hoist or lift operator, Dr. Taylor.
HPI: Riri is a 68 year old female with PMH of hypertension, hyperlipidemia, PFO, GERD, asthma, and depression/anxiety who presented to [facility] for evaluation of L flank pain which started a few days ago. She also notes she has felt generally unwell
with malaise for the past week or so. She reports she initially went to [facility] for evaluation and had workup that was negative, and she was discharged. Due to progressive/persistent symptoms, she came to [facility] for further evaluation. In
ER, she was found to have 3 mm acute/subacute renal infarct in the posterior interpolar aspect of the left kidney on CT scan. She was started on heparin drip and vascular surgery was consulted. Given her history of PFO, cardiology consulted in
addition. At this time, she reports she is feeling well overall. Denies chest pain, palpitations, dizziness, lightheadedness, LE edema, or SOB.
Progress Note - Motor Coach Driver
Subjective
Date of Service: December 25, 2023
Feeling well this AM. Only complaint is ARRIAZA.
Objective
Labs:
12/24/23 08:33
12/25/23 02:53
Labs
Hgb 14.4 g/dL (12.0-16.0) 12/24/23 08:33
Hct 43.1 % (37.0-47.0) 12/24/23 08:33
Plt Count 260 10^3/uL (130-400) 12/24/23 08:33
APTT 93.7 Sec (23.4-35.0) H 12/25/23 08:48
Sodium 136 mmol/L (135-145) 12/25/23 02:53
Potassium 4.0 mmol/L (3.5-5.1) 12/25/23 02:53
BUN 13 mg/dl (7-17) 12/25/23 02:53
Creatinine 0.6 mg/dL (0.6-1.0) 12/25/23 02:53
Glucose 121 mg/dl (70-99) H 12/25/23 02:53
Vital Signs and I&O:
Vital Signs
Temp Pulse Resp BP Pulse Ox
98.1 F 76 15 109/56 97
12/25/23 07:48 12/25/23 08:15 12/25/23 08:15 12/25/23 07:48 12/25/23 08:15
Vital Signs
Temp Pulse Resp BP Pulse Ox
98.1 F 76 15 109/56 97
12/25/23 07:48 12/25/23 08:15 12/25/23 08:15 12/25/23 07:48 12/25/23 08:15
Intake & Output
12/23/23 12/24/23 12/25/23 12/26/23
06:59 06:59 06:59 06:59
Intake Total 1156 / 1156
Output Total 200 / 200
Balance 956 / 956
Physical Exam
Physical Exam
GEN: No distress, awake, alert, oriented x3
HEENT: supple, anicteric, mmm
LUNGS: CTA b/l, no wheezes/rales
CV: Reg, S1/S2, no murmur
EXT: No clubbing, cyanosis, or edema
NEURO: Gross non-focal
SKIN: Warm, dry, no rash
[2023-12-25 09:58] LABS: Glycohemoglobin (HgbA1c) 5.6 % (4.0-5.6)
[2023-12-25] MEDS: OSCAL 500 + D 500 MG PO (10:32)
[2023-12-25] MEDS: SENOKOT 8.59999999999999964 MG PO (10:32)
[2023-12-25] MEDS: PROTONIX 40 MG PO (10:32)
[2023-12-25] MEDS: TORADOL 15 MG IV (11:39)
[2023-12-25 11:49] VITALS: BP 130/78
[2023-12-25 13:24] LABS: Glucose - Point of Care 108 mg/dl (70-99)
[2023-12-25 15:40] VITALS: BP 98/57
--- NOTE | 2023-12-25 17:59 | CM ---
met with patient at bedside.patient lives alone in apt with no malik,she is i with amb and adl's.her pcp i dr pacheco and she uses [facility] pharmacy in [facility].patient is adm with left renal infarct on heparin gtt.i called patient's pharmacy and cost of
bennett is $140.25 for 60 pills.i gave her a coupon card for a free month supply of med.she has had vn in past after surgery and has been to [facility] after foot surgery.she will have no needs when dc home.
[2023-12-25 18:19] LABS: Glucose - Point of Care 97 mg/dl (70-99)
[2023-12-25] MEDS: OSCAL 500 + D PO (20:57)
[2023-12-25] MEDS: SENOKOT PO (20:58)
[2023-12-25 20:59] LABS: Glucose - Point of Care 100 mg/dl (70-99)
[2023-12-25] MEDS: NEURONTIN 600 MG PO (21:05)
[2023-12-25] MEDS: TOPAMAX 200 MG PO (21:06)
[2023-12-25] MEDS: PRAVACHOL 40 MG PO (21:06)
[2023-12-25] MEDS: ZETIA 10 MG PO (21:06)
[2023-12-25] MEDS: DESYREL 200 MG PO (21:06)
[2023-12-25] MEDS: NORVASC 7.5 MG PO (21:06)
[2023-12-25] MEDS: CELEXA 20 MG PO (21:06)
[2023-12-25 23:00] VITALS: BP 150/86
[2023-12-26] MEDS: COMPAZINE 10 MG IV ×2 (05:26→13:50)
[2023-12-26] MEDS: DILAUDID 1 MG IV ×3 (05:26→13:47)
[2023-12-26 05:50] LABS: Hematocrit 37.4 % (37.0-47.0); Hemoglobin 12.9 g/dL (12.0-16.0); Mean Corp Hgb Conc. 34.5 g/dL (33.0-37.0); Mean Corpuscular Hgb 30.5 pg (27.0-31.0); Mean Corpuscular Volume 88.4 fL (81.0-99.0); Mean Platelet Volume 8.5 fL (7.4-10.4); Platelet Count 219 10^3/uL (130-400); Red Blood Cell Count 4.23 10^6/uL (4.20-5.40); Red Cell Dist. Width 11.9 % (11.5-14.5)
[2023-12-26 05:54] LABS: APTT 112.1 Sec (23.4-35.0)
[2023-12-26 06:19] LABS: ALT (SGPT) 27 U/L (0-35); AST (SGOT) 29 U/L (14-36); Albumin 3.9 g/dl (3.5-5.0); Alkaline Phosphatase 62 U/L (38-126); Blood Urea Nitrogen 15 mg/dl (7-17); Calcium 9.4 mg/dl (8.4-10.2); Carbon Dioxide 24 mmol/L (22-30); Chloride 109 mmol/L (98-107); Direct Bilirubin 0.3 mg/dl (0.0-0.4); Estimated Creatinine Clearance 94 ml/min; Glucose 94 mg/dl (70-99); Sodium 139 mmol/L (135-145); Total Bilirubin 0.6 mg/dl (0.2-1.3); Total Protein 6.4 g/dl (6.3-8.2); eGFR > 60.00
[2023-12-26 07:18] LABS: Glucose - Point of Care 96 mg/dl (70-99)
[2023-12-26] MEDS: FLOVENT 44 MCG INHALER 2 PUFF INH (07:41)
[2023-12-26 07:45] VITALS: BP 119/70
[2023-12-26] MEDS: OSCAL 500 + D 500 MG PO (09:04)
[2023-12-26] MEDS: PROTONIX 40 MG PO (09:04)
[2023-12-26] MEDS: SENOKOT 8.59999999999999964 MG PO (09:15)
--- NOTE | 2023-12-26 11:05 | W.PN.HOSP.TC ---
Today's Communication/Plan
-
DC
Assessment / Plan
Assessment / Plan
# Acute/subacute left renal infarct in the posterior interpolar aspect of the left kidney size about 3 cm. With PFO concern for paradoxical emboli. No evidence of arterial dissection of the renal artery. Patient initiated on anticoagulation.
Check antiphospholipid antibodies -pending. Patient advised also to follow-up with hematology as an outpatient to rule out any thrombophilia. Primary concern is of PFO. Echo with normal EF and no VHD significant. ultrasound of the leg no DVT.
Improved left flank pain and not needing IV pain medicaiton
Today pain across lower back seems non specific .
CW AC - Switch to oral Eliquis today.Pt ok with cost.
Follow primary ui ux developer and get the further cardiac monitoring as outpatient. See cardiology note
# History of PFO
-follows cardiology at [facility]
-cardiology input noted - follow with Dr Taylor for closure discussions
#leukocytosis-mild. No fever. Repeat CBC normal.
# LFT elevation
-AST 52, ALT 39
-normalized ?reactive
-CT of the abdomen pelvis shows liver/pancreas/gallbladder all within normal limits.
# History of asthma
-Not in acute exacerbation
-Nebulizers from home will be continued
-Breo continued
# GERD
-PPI continued
# Essential hypertension
-Blood pressure stable
-Norvasc continued
# History of anxiety and depression/insomnia
-We will continue citalopram trazodone and Topamax
# Hyperlipidemia
-Zetia continued
-Pravastatin hold due to elevated LFTs
# Type 2 diabetes
-Hold metformin
-Sliding scale
-Carb controlled diet
# Full code
# DVT prophylaxis
DC home today
More than 30 minutes spent in discharge including
Final examination of the patient
Summarizing hospital stay
Instructions for continuing care to all relevant caregivers
Preparation of discharge records, prescriptions, and referral forms
Total time spent (in minutes): 32
Anticipated Discharge: Today
Subjective/Interval History
-
Date of Service: December 26, 2023
Left flank pain was abating after going on IV heparin. She states it reared up a little bit yesterday but also started noticed some pain across to the right side.Didnt not need pain medication.
Denies any nausea vomiting.
No dysuria or frequency.
Objective Data
-
Labs:
Laboratory Results
12/26/23 12/26/23
05:16 12:45
WBC 9.0
Hgb 12.9
Hct 37.4
Plt Count 219
APTT 112.1 H Pending
Sodium 139
Potassium 4.0
Chloride 109 H
Carbon Dioxide 24
BUN 15
Creatinine 0.7
Glucose 94
Calcium 9.4
Total Bilirubin 0.6
AST 29
ALT 27
Alkaline Phosphatase 62
Vital Signs:
Vital Signs
Temp Pulse Resp BP Pulse Ox
98.5 F 62 16 119/70 90
12/26/23 07:45 12/26/23 07:45 12/26/23 07:45 12/26/23 07:45 12/26/23 07:45
I&O
12/25/23 12/26/23 12/27/23
06:59 06:59 06:59
Intake Total 1156 / 1156 2192 / 2192 440 / 440
Output Total 200 / 200
Balance 956 / 956 2 / 2192 440 / 440
Review of Systems
-
Constitutional: Denies Fever
Respiratory: Denies Trouble Breathing
Cardiac: Denies Chest Pain
Neuro: Denies Dizzy
Physical Exam
-
General: No Apparent Distress
HEENT: Moist Mucous Membranes
Respiratory: Clear to Auscultation
Cardiac: Regular Rhythm and S1/S2
GI: Soft, Nontender, Nondistended and Normal Bowel Sounds
Genito-urinary: Other (BL CVA and lower back non specific discomfort on palpation ;no sciatica)
Neuro: AO x 3
Psych: Calm
Data Reviewed
-
Labs: Labs Reviewed by me
--- NOTE | 2023-12-26 11:12 | W.DS.TRANS ---
DC Summary - Telecommunications Officer
-
Discharge Instructions:
Discharge Diagnosis/Procedures Left renal infarct ;PFO
Diet Regular
Activity As tolerated
Driving Restrictions As prior to admission
Bathing Restrictions None
Instructions:
Stand-Alone Forms:
Changes to Home Medications: Yes
Discharge Medications:
DC Medications w/original date entered in [employer]
topiramate 100 mg tablet 200 mg PO HS Neurological Condition 04/24/12
citalopram 20 mg tablet 20 mg PO HS Mental Health/Anxiety 07/05/18
trazodone 100 mg tablet 200 mg PO HS Sleep 07/05/18
albuterol sulfate 2.5 mg/3 mL (0.083 %) solution for nebulization 2.5 mg inhalation R Q6 PRN sob/wheezing 07/16/22
amlodipine 5 mg tablet 7.5 mg PO HS Blood pressure 07/16/22
fluticasone furoate 100 mcg/actuation blister powder for inhalation (Arnuity Ellipta) 1 inh inhalation R DAILY Lung/breathing issues 07/16/22
aspirin 81 mg chewable tablet 81 mg PO DAILY Blood Clot Prevention/Tx 12/24/23
calcium carbonate 600 mg-vitamin D3 5 mcg (200 unit) tablet 1 tab PO BID Supplement 12/24/23
ergocalciferol (vitamin D2) 1,250 mcg (50,000 unit) capsule 1,250 unit PO MO Supplement 12/24/23
ezetimibe 10 mg tablet 10 mg PO HS High Cholesterol 12/24/23
gabapentin 600 mg tablet 600 mg PO HS Pain 12/24/23
metformin 500 mg tablet 500 mg PO DAILY Diabetes 12/24/23
omeprazole 40 mg capsule,delayed release 40 mg PO DAILY Gastrointestinal Issue 12/24/23
pravastatin 40 mg tablet 40 mg PO HS High Cholesterol 12/24/23
apixaban 5 mg tablet (Eliquis) 5 mg PO BID #60 tabs 12/25/23
Home Medication Changes
New medication - Eliquis
Pending Results: No
[2023-12-26 11:47] LABS: Glucose - Point of Care 93 mg/dl (70-99)
[2023-12-26] MEDS: ELIQUIS 5 MG PO (12:59)
[2023-12-26 13:12] LABS: APTT 34.2 Sec (23.4-35.0)
[2023-12-26 14:54] VITALS: BP 115/57
--- NOTE | 2023-12-26 18:11 | W.DCSUMMARY ---
Discharge Summary
Discharge Data
Date of Admission: 12/24/23
Date of Discharge: 12/26/23
-
Pending Results: Yes (Antiphospholipid antibody panel)
Hospital Course
Primary diagnosis:
Acute/subacute left renal infarct in the posterior interpolar aspect of the left kidney size about 3 cm
History of PFO( Patent formamen ovale)
Secondary diagnosis:
Asthma
Diabetes mellitus type 2
Essential hypertension
Hyperlipidemia
Hospital course:
Patient presented with acute left flank pain and discovered to have acute/subacute left renal infarct in the posterior interpolar aspect of the left kidney. Was seen by vascular there is no evidence of renal artery dissection. She has a history
of a PFO but no prior embolic events. She was initiated on anticoagulation with IV heparin switched to Eliquis when she was stable medically. She was also seen by cardiology who does not see any A-fib currently but advised to get back to her
primary airport skilled maintenance supervisor and get a cardiac monitoring as an outpatient. There was echo done which showed normal EF and no significant valve abnormality but no bubble study was done as we know she has a PFO. With regards to PFO communication was made
with primary airport skilled maintenance supervisor at [facility] to evaluate for indications of closure now with an embolic event.
She had ultrasound of the lower extremities which did not show any DVT.
Antiphospholipid antibody was also requested the report of which is pending at the time of discharge. I advised her to see a hematology as well as an outpatient to workup for any hypercoagulable states.
Consultants on board:
Cardiology Dr. Xiao
Discharge Plan
-
Patient Disposition: Home (Routine Discharge)
Discharge Diagnosis/Procedures: Left renal infarct ;PFO
Condition: Good
Diet: Regular
Activity: As tolerated
Driving Restrictions: As prior to admission
Bathing Restrictions: None
Referrals:
Bradly Brown DO [Family Provider] -
Gavin Taylor MD [Non-Admitting Privileges] - 01/13/24 2:45 pm (You have a follow up with Dr. Taylor's Physician photo studio assistant. Please call with questions. )
Prescriptions:
New
Eliquis 5 mg tablet
5 mg PO BID Qty: 60 0RF
Continued
topiramate 100 MG tablet
200 mg PO HS
citalopram 20 MG tablet
20 mg PO HS
trazodone 100 MG tablet
200 mg PO HS
albuterol sulfate 2.5 mg /3 mL (0.083 %) solution for nebulization
2.5 mg inhalation R Q6 PRN (Reason: sob/wheezing)
amlodipine 5 mg Tablet
7.5 mg PO HS
Rx Instructions:
TAKEN W/ 2.5MG = 7.5MG
Arnuity Ellipta 100 mcg/actuation blister with device
1 inh INHALATION R DAILY
metformin 500 mg tablet
500 mg PO DAILY
gabapentin 600 mg tablet
600 mg PO HS
pravastatin 40 mg tablet
40 mg PO HS
Hold Instructions: Resume on 01/08/24. resume after repeating your Liver function test
calcium carbonate-vitamin D3 600 mg-5 mcg (200 unit) Tablet
1 tab PO BID
omeprazole 40 mg capsule,delayed release(DR/EC)
40 mg PO DAILY
aspirin 81 mg Tablet,Chewable
81 mg PO DAILY
ergocalciferol (vitamin D2) 1,250 mcg (50,000 unit) capsule
1,250 unit PO MO
ezetimibe 10 mg tablet
10 mg PO HS
Discharge Orders:
Discharge Patient (As Directed); Ordered 12/26/23
Ordered By: Kaushik Rojas
Discharge Date and Time
Discharge Date/Time: 12/26/23 17:44
Print Language: KYRGYZ
[2023-12-28 00:27] LABS: Beta-2-Glycoprotein I Ab. IgA <10 SAU (<=20); Beta-2-Glycoprotein I Ab. IgG <10 SGU (<=20); Beta-2-Glycoprotein I Ab. IgM <10 SMU (<=20)
[2023-12-28 17:40] LABS: Cardiolipin IgA Antibody <10 APL (<=11); Cardiolipin IgM Antibody <10 MPL (<=12); Cardiolipin Igg Antibody <10 GPL (<=14)
[2023-12-31 02:31] LABS: Phosphatidylserine Ab, IgA 0 APS (0-19); Phosphatidylserine Ab, IgG 2 GPS (0-15); Phosphatidylserine Ab, IgM 1 MPS (0-21)
== END 2023-12-26 17:44 | disposition home or self-care (01) | DRG 699 ==
LOC: 2 SOUTH 13:45
PROVIDERS: Registered Nurse; Surgery Vascular Surgery; ADMITTING PHYSICIAN Internal Medicine; ATTENDING PHYSICIAN Internal Medicine; CONSULT PHYSICIAN Internal Medicine Cardiovascular Disease; EMERGENCY PHYSICIAN Emergency Medicine; FAMILY PHYSICIAN Family Medicine; OTHER PHYSICIAN Surgery Vascular Surgery
DX: N28.0 Ischemia and infarction of kidney (principal); Q21.12 Patent foramen ovale; F32.A Depression, unspecified; F41.9 Anxiety disorder, unspecified; R79.89 Other specified abnormal findings of blood chemistry; G47.00 Insomnia, unspecified; E78.5 Hyperlipidemia, unspecified; D72.829 Elevated white blood cell count, unspecified; I11.9 Hypertensive heart disease without heart failure; K21.9 Gastro-esophageal reflux disease without esophagitis; M19.90 Unspecified osteoarthritis, unspecified site; E11.51 Type 2 diabetes mellitus with diabetic peripheral angiopathy without gangrene; J45.909 Unspecified asthma, uncomplicated; Z96.651 Presence of right artificial knee joint; Z87.19 Personal history of other diseases of the digestive system; Z87.440 Personal history of urinary (tract) infections; Z79.84 Long term (current) use of oral hypoglycemic drugs; Z79.82 Long term (current) use of aspirin; Z79.51 Long term (current) use of inhaled steroids
CPT/HCPCS: 74177; 80053; 81003; 81015; 82248; 82962; 83036; 85025; 85027; 85730; 86146; 86147; 86148; 93005; 93306; 93970; 94640; 96374; 96375; 99291; Q9967

== ENCOUNTER 2024-01-05 15:47 | Inpatient (IN) | payer MEDICARE, SELFPAY ==
[2024-01-05 10:55] VITALS: BP 127/92
--- NOTE | 2024-01-05 11:16 | EDRN ---
Barrera Hernandez PA in room w/pt.
--- NOTE | 2024-01-05 11:25 | ED.GENMED ---
History of Present Illness
General
Chief Complaint: Flank Pain
Source: patient and records
Time Seen by Provider: 01/05/24 11:00
Travel History
Have you had any contact with someone who has COVID-19?: No
Do you have any symptoms of coronavirus? Fever > 100 degrees, chills, cough, shortness of breath, sore throat, loss of taste or smell, muscle aches, or headache?: No
History of Present Illness
History of Present Illness:
68-year-old female with a past medical history of atrial fibrillation, known PFO, recently diagnosed with left renal infarct thought to be from an embolic event presenting back to the emergency department for worsening left flank pain over the last
few days accompanied with nausea and patient stating that she feels that she is having urinary frequency but different than what would be typical of a urinary tract infection as she has had UTIs in the past. Patient has been unable to follow-up
with any of her providers on an outpatient basis as she states her appointments are not until January but she does note she is taking her medications as prescribed. She denies any fevers but states since all of these symptoms have started she has had a
low-grade temperature around 99. She has no other concerns or new symptoms at this time.
Past History
Past History
ED Past Medical History: Arrthythmia, GERD, HTN, Other (Diverticulosis, arthritis, anxiety, depression, UTI, GERD) and Other (Patent foramen ovale)
ED Past Surgical History: Bowel resection, Gynecological, Orthopedic, Tonsilectomy and Other (Breast reduction, hysterectomy)
Social History
Tobacco: Non-smoker
Alcohol: None
Drug: None
Personal: Single
Living: with family
Family History
Family History: Other (Noncontributory); Negative CAD or Cancer
Review of Systems
Review of Systems
All Other Systems: ROS reviewed and negative except as documented in HPI and ROS
Phy Exam
Physical Exam
Physical Exam:
GENERAL: Alert , appears uncomfortable. hard time sitting still/finding comfortable position in bed
EYE: conjunctiva clear
NECK: Supple, no significant adenopathy.
ENT: o/p clr, mmm.
CARDIAC: Regular rate and rhythm
LUNGS: Clear breath sounds bilaterally, no acute respiratory distress, no wheezes/rales/rhonchi
Abdomen: Soft, nontender, nondistended, mild to moderate left CVA tenderness
NEUROLOGICAL: Alert and oriented
SKIN: Warm and dry, skin intact.
MUSCULOSKELETAL: well perfused.
PSYCH: Normal and appropriate interaction.
Scores
Heart Failure Risk
Heart Failure Risk Score: Not Applicable
Heart Score for Chest Pain Patients
STEMI patient?: Not applicable
Withdrawal Assessment of Alcohol
Withdrawal Assessment Completed?: Not applicable
Course
Orders/Labs/Results
Orders:
Orders
01/05/24 11:21
HYDROmorphone [Dilaudid] 0.5 mg IV NOW STA
Prochlorperazine [Compazine] 10 mg IV NOW STA
01/05/24 11:22
CT Abd/Pel (IV only)-DH only Urgent
Comment:
Reason For Exam: known left renal infarct, worsening pain
01/05/24 11:53
Complete Blood Count/With Diff Urgent
Comprehensive Metabolic Panel Urgent
Lipase Urgent
Troponin I Urgent
01/05/24 11:54
Urinalysis Reflex To Culture Urgent
Date Specimen was Collected: 01/05/24
Time Specimen was Collected: 11:48
Urine Microscopic Reflex Cult Urgent
Urine Culture Urgent
CARMEN Source: U
Specimen Description:
Date Specimen was Collected: 01/05/24
Time Specimen was Collected: 11:48
01/05/24 14:48
0.9% Sodium Chloride 1000 ml [Nss] 1,000 ml IV BOLUS
HYDROmorphone [Dilaudid] 0.5 mg IV NOW STA
Abnormal Lab Results
01/05/24 01/05/24
11:53 11:54
Abs Immat Gran (auto) 0.1 H 10^3/uL
(0-0.05)
Immature Gran % 0.9 H %
(0-0.5)
Chloride 111 H mmol/L
(98-107)
BUN 24 H mg/dl
(7-17)
Glucose 111 H mg/dl
(70-99)
Lipase 1115 H* U/L
(23-300)
Leukocyte Esterase Rfl 2+ A
(Negative)
Urine Bacteria (Reflex) Few A
(Negative)
01/05/24 11:53
01/05/24 11:53
Vital Signs
Initial and Last Documented VS:
Initial Vital Signs
Temp Pulse Resp BP Pulse Ox
99.5 F 74 16 127/92 97
01/05/24 10:55 01/05/24 10:55 01/05/24 10:55 01/05/24 10:55 01/05/24 10:55
Last Documented Vital Signs
Temp Pulse Resp BP Pulse Ox
99.5 F 64 16 139/78 97
01/05/24 10:55 01/05/24 13:44 01/05/24 13:44 01/05/24 12:06 01/05/24 13:44
MDM/Problems Addressed
Differential Diagnosis Includes:
Worsening left renal infarct, acute on chronic pain from recent left renal infarct, kidney stone, UTI/pyelonephritis
MDM/Problems Addressed:
68-year-old female recently admitted at this facility for an acute/subacute left renal infarct, presenting back to the ER for worsening pain. Did not take anything for pain as she is unable to take Tylenol and needs to avoid NSAIDs due to her being
on Eliquis she has no fevers here but does have a temperature of 99.5. Will recheck labs and attempt for CT imaging to reevaluate the renal infarct area to see if this is worsening. Pain control with Dilaudid. Patient notes that she also had
relief of her nausea with Compazine.
*Radiology
Radiology exam reviewed: radiology read reviewed
*Pulse Oximetry
Patient hypoxic: no
*Critical Care Note
Total Time (30-74mins, 75-104mins- exclusive of procedures): Not Applicable
Data Reviewed
Review of Other/Old Records Reveals: Labs, Records, Radiology Studies and Discharge Summary
Source: patient and records
Patient Management
Discussion with other providers: Hospitalist
Escalation/DeEscalation of care consider admission/obs:
Patient has a lipase level of greater than 1000 which is the likely cause of her acutely worsening pain. Patient CT scan does not show any new pathologies and shows the continued subacute to chronic left renal infarct. On second reevaluation
patient did note worsening pain again so an additional half milligram of Dilaudid IV and IV fluids were ordered. I notified the hospitalist team who accepts for continued evaluation and treatment.
ED Attending Note
-
Portions of this chart may have been created with voice recognition software.� Occasional wrong word or��sound alike� substitutions may have occurred due to the inherent limitations of voice recognition software.
Discharge Plan
Departure
Patient Disposition: Admit
Date of Disposition: 01/05/24
Time of Disposition: 14:54
Presentation/result/management discussed w/ accepting MD/DO: Hospitalist
Discharge Problem:
Acute pancreatitis
Prescriptions:
No Action
topiramate 100 MG tablet
200 mg PO HS
citalopram 20 MG tablet
20 mg PO HS
trazodone 100 MG tablet
200 mg PO HS
albuterol sulfate 2.5 mg /3 mL (0.083 %) solution for nebulization
2.5 mg inhalation R Q6HPRN PRN (Reason: sob/wheezing)
amlodipine 5 mg Tablet
7.5 mg PO HS
Rx Instructions:
TAKEN W/ 2.5MG = 7.5MG
Arnuity Ellipta 100 mcg/actuation blister with device
1 inh INHALATION R HS
metformin 500 mg tablet
500 mg PO DAILY
gabapentin 600 mg tablet
600 mg PO HS
pravastatin 40 mg tablet
40 mg PO HS
Hold Instructions: Resume on 01/08/24. resume after repeating your Liver function test
calcium carbonate-vitamin D3 600 mg-5 mcg (200 unit) Tablet
1 tab PO BID
omeprazole 40 mg capsule,delayed release(DR/EC)
40 mg PO DAILY
aspirin 81 mg Tablet,Chewable
81 mg PO HS
ergocalciferol (vitamin D2) 1,250 mcg (50,000 unit) capsule
1,250 unit PO MO
ezetimibe 10 mg tablet
10 mg PO HS
Eliquis 5 mg tablet
5 mg PO BID Qty: 60 0RF
ondansetron [Zofran ODT] 4 mg Tablet,Disintegrating
4 mg PO Q6HPRN PRN (Reason: nausea)
Referrals:
Tosin Matta DO [Family Provider] -
Interventions
Interventions:
*Risk Screen - Suicide Last Done: 01/05/24 10:57
*General Assessment Last Done: 01/05/24 10:57
*Neglect/Abuse Screening Last Done: 01/05/24 11:46
ED- Fall Risk Assessment Last Done: 01/05/24 11:46
*ED COVID-19 Vaccine History Last Done: 01/05/24 10:57
AI-Qiscgx-Yzzafxaxhr Assessment Last Done: 01/05/24 11:50
ED-Female Genitourinary Assessment Last Done: 01/05/24 11:50
Discharge Date and Time
Print Language: FRENCH
[2024-01-05 11:47] VITALS: BMI 32.6
[2024-01-05] MEDS: DILAUDID 0.5 MG IV ×2 (12:02→15:13)
[2024-01-05] MEDS: COMPAZINE 10 MG IV (12:02)
[2024-01-05 12:06] VITALS: BP 139/78
[2024-01-05 12:07] LABS: % Basophils 0.7 % (0-2); % Eosinophils 0.9 % (0-6); % Immature Granulocytes 0.9 % (0-0.5); % Lymphocytes 42.9 % (20.5-51.1); % Neutrophils 47.6 % (42.2-75.2); Absolute Basophils 0.1 10^3/uL (0-0.2); Absolute Eosinophils 0.1 10^3/uL (0-0.7); Absolute Immature Granulocytes 0.1 10^3/uL (0-0.05); Absolute Lymphocytes 3.2 10^3/uL (1.2-3.4); Absolute Monocytes 0.5 10^3/uL (0.1-0.6); Absolute Neutrophils 3.6 10^3/uL (1.4-6.5); Hematocrit 41.1 % (37.0-47.0); Hemoglobin 13.7 g/dL (12.0-16.0); Mean Corp Hgb Conc. 33.3 g/dL (33.0-37.0); Mean Corpuscular Volume 89.9 fL (81.0-99.0); Mean Platelet Volume 8.2 fL (7.4-10.4); Nucleated Red Blood Cells % 0 %; Platelet Count 310 10^3/uL (130-400); Red Blood Cell Count 4.57 10^6/uL (4.20-5.40); White Blood Cell Count 7.6 10^3/uL (4.8-10.8)
[2024-01-05 12:26] LABS: Urine Albumin Negative (Neg - Trace); Urine Bilirubin Negative (Negative); Urine Character Clear (Clear); Urine Color Yellow; Urine Glucose Negative (Negative); Urine Ketone Negative (Negative); Urine Leukocyte 2+ (Negative); Urine Nitrite Negative (Negative); Urine Occult Blood Negative (Negative); Urine Specific Gravity 1.015 (<1.030); Urine Urobilinogen Negative (Neg - 1+)
[2024-01-05 12:39] LABS: ALT (SGPT) 22 U/L (0-35); AST (SGOT) 21 U/L (14-36); Albumin 4.6 g/dl (3.5-5.0); Alkaline Phosphatase 67 U/L (38-126); Blood Urea Nitrogen 24 mg/dl (7-17); Calcium 9.7 mg/dl (8.4-10.2); Carbon Dioxide 22 mmol/L (22-30); Chloride 111 mmol/L (98-107); Estimated Creatinine Clearance 80 ml/min; Glucose 111 mg/dl (70-99); Lipase 1115 U/L (23-300); Potassium 3.8 mmol/L (3.5-5.1); Sodium 140 mmol/L (135-145); Total Bilirubin 0.2 mg/dl (0.2-1.3); Total Protein 7.2 g/dl (6.3-8.2); eGFR > 60.00
[2024-01-05 12:43] LABS: Urine Mucus Few
[2024-01-05 12:44] LABS: Urine Bacteria Few (Negative); Urine Red Blood Cell 0-2 /HPF (0-2)
[2024-01-05 12:46] LABS: Troponin I < 0.012 ng/ml
--- NOTE | 2024-01-05 14:58 | HPS.HSE ---
Addendum entered and electronically signed by Daisy Ayers MD 01/05/24 16:10:
Patient seen and examined independently--agree with TUBE COVERER note
GENERAL: well developed, well nourished, female in no apparent distress
HEENT: NC/AT--facial twitches (tics)
HEART: regular rate and rhythm, +S1, +S2
LUNGS : clear to auscultation bilaterally
ABDOM: soft, left upper abdomen tender without guarding or rebound, nondistended, + bowel sounds
EXT: no cyanosis, clubbing, or edema
NEUROLOGIC: grossly intact
NO left CVA tenderness
left flank pain possible acute pancreatitis--lipase elevated at 1100, gallbladder to my eye appears enlarged on CT scan but formally read as negative--also appears to be constipated--also read as neg--check US (eval for gallstones--not commented on
on CT scan)--ADMIT--consult GI--check MRI abdomen/MRCP in AM--NPO for now--cont dilaudid but pt says not working--will try one dose of IV toradol--cont IVF--Monitor lipase in the morning--zofran prn for n/v--quick review of her meds doesn't seem to
show cause for pancreatitis--pt does not drink ETOH--check lipid panel
Left renal infract--recent admission for this--cont Eliquis
History of PFO--follows cardiology at [facility]
History of asthma--Not in acute exacerbation--Nebulizers from home will be continued--Breo continued
GERD--PPI continued
Essential hypertension--Blood pressure stable--Norvasc continued
History of anxiety and depression/insomnia--We will continue citalopram, trazodone, and Topamax
Hyperlipidemia--Zetia continued--Pravastatin on hold
Type 2 diabetes--Hold metformin and hold SSI for now
Code status--Full code
DVT prophylaxis--Eliquis
Original Note:
Family Physician
-
Family Physician: Tosin Matta DO
Chief Complaint
-
Left flank pain
History of Present Illness
68-year-old female with a past medical history of atrial fibrillation, known PFO, recently diagnosed with left renal infarct thought to be from an embolic event presenting back to the emergency department for worsening left flank pain. Patient had
the pain since the discharge but for past few days got worse . Patient is nauseous . Noted temp of 99.0 . Denied vomiting, diarrhea, constipation .patient stated dizziness .denied headache or syncopal episode .patient denied chest pain , short of
breath .patient denied dysuria hematuria.
Elevated lipase. Patient received Dilaudid and fluids. Admitting for further management
Medical History
Past Medical History
Past Medical History: Reports Other
Additional Past Medical History:
Peripheral artery disease
Abscess of sigmoid colon due to diverticulitis
GERD
PFO
Asthma
Past Surgical History: Reports Other
Additional Past Surgical History:
Meniscectomy
ORIF right ankle fracture
Tonsillectomy
Hysterectomy with a bladder/rectum left
Sigmoid colectomy
Right total knee replacement
Social History
Tobacco: Non-smoker
Alcohol: None
Drug: None
Living: With Family
Family History
Family History: Not pertinent
Allergies / Home Medications
Allergies reflects when Allergies were last updated in [employer].
Home Medications with original date entered in [employer]
Allergy/Medication List:
Allergies
Allergy/AdvReac Type Severity Reaction Status Date / Time
pollen extracts Allergy SEASONAL-CO Verified 12/24/23 08:13
UGHING
Home Medications
topiramate 100 mg tablet 200 mg PO HS Neurological Condition 04/24/12
citalopram 20 mg tablet 20 mg PO HS Mental Health/Anxiety 07/05/18
trazodone 100 mg tablet 200 mg PO HS Sleep 07/05/18
albuterol sulfate 2.5 mg/3 mL (0.083 %) solution for nebulization 2.5 mg inhalation R Q6HPRN PRN sob/wheezing 07/16/22
amlodipine 5 mg tablet 7.5 mg PO HS Blood pressure 07/16/22
fluticasone furoate 100 mcg/actuation blister powder for inhalation (Arnuity Ellipta) 1 inh inhalation R HS Lung/breathing issues 07/16/22
aspirin 81 mg chewable tablet 81 mg PO HS Blood Clot Prevention/Tx 12/24/23
calcium carbonate 600 mg-vitamin D3 5 mcg (200 unit) tablet 1 tab PO BID Supplement 12/24/23
ergocalciferol (vitamin D2) 1,250 mcg (50,000 unit) capsule 1,250 unit PO MO Supplement 12/24/23
ezetimibe 10 mg tablet 10 mg PO HS High Cholesterol 12/24/23
gabapentin 600 mg tablet 600 mg PO HS Pain 12/24/23
metformin 500 mg tablet 500 mg PO DAILY Diabetes 12/24/23
omeprazole 40 mg capsule,delayed release 40 mg PO DAILY Gastrointestinal Issue 12/24/23
pravastatin 40 mg tablet 40 mg PO HS High Cholesterol 12/24/23
apixaban 5 mg tablet (Eliquis) 5 mg PO BID #60 tabs 12/25/23
ondansetron 4 mg disintegrating tablet 4 mg PO Q6HPRN PRN nausea 01/05/24
Review of Systems
-
Constitutional: Reports No Symptoms
EENT: Reports No Symptoms
Respiratory: Reports No Symptoms
Cardiac: Reports No Symptoms
Abdomen/GI: Reports Nausea
: Reports Flank Pain (Left flank pain)
Musculoskeletal: Reports No Symptoms
Skin: Reports No Symptoms
Neurological: Reports No Symptoms
Endocrine: Reports No Symptoms
Hematologic/Lymphatic: Reports No Symptoms
Psych: Reports No Symptoms
Physical Exam
Vital Signs
Vital Signs
Temp Pulse Resp BP Pulse Ox
99.5 F 64 16 139/78 97
01/05/24 10:55 01/05/24 13:44 01/05/24 13:44 01/05/24 12:06 01/05/24 13:44
Physical Exam
General: Well Developed, Well Nourished and No Apparent Distress
HEENT: NormoCephalic, Moist mucous membranes and Atraumatic
Respiratory: Clear
Cardiac: S1/S2 and Regular Rhythm; No Murmur or Rub
GI: Soft, Non Tender, Non Distended and Normal Bowel Sounds; No Organomegaly
Rectal: Deferred by Provider
Musculoskeletal: No Clubbing, No Cyanosis and No Edema
Skin: No Rash
Neuro: AO x 3 and Nonfocal/grossly intact
Psych: Calm
Laboratory Results
-
01/05/24 11:53
01/05/24 11:53
Laboratory Results
Total Bilirubin 0.2 mg/dl (0.2-1.3) 01/05/24 11:53
AST 21 U/L (14-36) 01/05/24 11:53
ALT 22 U/L (0-35) 01/05/24 11:53
Alkaline Phosphatase 67 U/L (38-126) 01/05/24 11:53
Troponin I < 0.012 ng/ml 01/05/24 11:53
Lipase 1115 U/L (23-300) H* 01/05/24 11:53
Data Reviewed
-
Lab Data: Labs Reviewed by me
Impression/Plan
-
# left flank pain possible acute pancreatitis
-Lipase 1115
-CT abdomen pelvis Subacute 3 cm left renal infarct. Diverticuli are present in the colon with no CT evidence of diverticulitis.Rectosigmoid anastomosis
-Dilaudid as needed for pain
-LR continued
-Monitor lipase in the morning
-Keep patient n.p.o.
-Dilaudid prn for pain
-zofran prn for N/v
-US of abdomen
-MRI of abdomen in Am
-GI consulted
# Left renal infract
-Eliquis continued
# History of PFO
-follows cardiology at [facility]
# History of asthma
-Not in acute exacerbation
-Nebulizers from home will be continued
-Breo continued
# GERD
-PPI continued
# Essential hypertension
-Blood pressure stable
-Norvasc continued
# History of anxiety and depression/insomnia
-We will continue citalopram trazodone and Topamax
# Hyperlipidemia
-Zetia continued
-Pravastatin hold due to elevated LFTs
# Type 2 diabetes
-Hold metformin
# Full code
# DVT prophylaxis
-Eliquis
[2024-01-05] MEDS: NSS 1000 IV (15:12)
[2024-01-05 15:16] VITALS: BP 124/85
--- NOTE | 2024-01-05 15:50 | EDRN ---
Dr. Ayers in to see pt. Pt informed Dr. Ayers pain med did not work for her.
[2024-01-05 16:50] VITALS: BP 120/75
--- NOTE | 2024-01-05 17:01 | EDRN ---
Pt declined taking the toradol saying due to her kidneys she takes no NSAIDS. This RN will TT Dr. Ayers.
--- NOTE | 2024-01-05 17:07 | EDRN ---
TT sent to Dr. Ayers-->Dr. Ayers, RE pt Riri Finley. Pt is in US now and will then be transported directly to admission bed. I attempted to administer Toradol for pain. Pt declined stating she takes no NSAIDs due to the effect they can
have on her kidneys. Pt said to me, 'I think I need a higher dose of dilaudid. The dose given was not enough.' [facility]I ED RN Pt admitted to [facility]. Dr. Ayers responded 'OK.'
--- NOTE | 2024-01-05 17:15 | CON.GI ---
Consultation
-
Date/Time Consultation Requested: 01/05/2024
Date/Time Consultation Performed: 01/05/2024
Performing Provider: Casey Thompson
Reason for Consultation: elevated lipase
Medical History
Chief Complaint / HPI
Chief Complaint: elevated lipase
History of Present Illness:
The patient is a 68-year-old female with h/o afib, known PFO, asthma, GERD, and diverticulitis complicated by abscess s/p sigmoidectomy, and recent left renal infarct thought to be from an embolic event who returns to hospital with recurrent and
worsening left flank pain. She was d/c'ed home from recent admission with left flank pain which became worse and returned to ER. Her pain is associated with nausea but denies vomiting. Ate breakfast fine this AM.
Past Medical History
Past Medical History: Arrhythmias, Asthma and Other
Past Surgical History: Other
Social History
Tobacco: Non-Smoker
Alcohol: None
Family History
Family History: Reviewed & Not Pertinent
Allergies / Home Medications
Allergy/AdvReac Type Severity Reaction Status Date / Time
pollen extracts Allergy SEASONAL-CO Verified 12/24/23 08:13
UGHING
�Medication �Instructions �Recorded
topiramate 100 mg tablet 200 mg PO HS Neurological Condition 04/24/12
citalopram 20 mg tablet 20 mg PO HS Mental Health/Anxiety 07/05/18
trazodone 100 mg tablet 200 mg PO HS Sleep 07/05/18
albuterol sulfate 2.5 mg/3 mL 2.5 mg inhalation R Q6HPRN PRN 07/16/22
(0.083 %) solution for nebulization sob/wheezing
amlodipine 5 mg tablet 7.5 mg PO HS Blood pressure 07/16/22
fluticasone furoate 100 1 inh inhalation R HS 07/16/22
mcg/actuation blister powder for Lung/breathing issues
inhalation (Arnuity Ellipta)
aspirin 81 mg chewable tablet 81 mg PO HS Blood Clot 12/24/23
Prevention/Tx
calcium carbonate 600 mg-vitamin 1 tab PO BID Supplement 12/24/23
D3 5 mcg (200 unit) tablet
ergocalciferol (vitamin D2) 1,250 1,250 unit PO MO Supplement 12/24/23
mcg (50,000 unit) capsule
ezetimibe 10 mg tablet 10 mg PO HS High Cholesterol 12/24/23
gabapentin 600 mg tablet 600 mg PO HS Pain 12/24/23
metformin 500 mg tablet 500 mg PO DAILY Diabetes 12/24/23
omeprazole 40 mg capsule,delayed 40 mg PO DAILY Gastrointestinal 12/24/23
release Issue
pravastatin 40 mg tablet 40 mg PO HS High Cholesterol 12/24/23
apixaban 5 mg tablet (Eliquis) 5 mg PO BID #60 tabs 12/25/23
ondansetron 4 mg disintegrating 4 mg PO Q6HPRN PRN nausea 01/05/24
tablet
Review of Systems
Vital Signs
Temp Pulse Resp BP Pulse Ox
99.5 F 62 16 120/75 99
01/05/24 10:55 01/05/24 16:50 01/05/24 16:50 01/05/24 16:50 01/05/24 16:50
Physical Exam
Exam
General: Well Developed and Well Nourished
HEENT: Normocephalic and Anicteric
Respiratory: Clear
Cardiac: S1/S2
GI: Soft, Non Tender, Non Distended and Tender (tender to palpation in left flank/back)
Results
WBC 7.6 10^3/uL (4.8-10.8) 01/05/24 11:53
Hgb 13.7 g/dL (12.0-16.0) 01/05/24 11:53
Hct 41.1 % (37.0-47.0) 01/05/24 11:53
MCV 89.9 fL (81.0-99.0) 01/05/24 11:53
Plt Count 310 10^3/uL (130-400) 01/05/24 11:53
Absolute Neuts (auto) 3.6 10^3/uL (1.4-6.5) 01/05/24 11:53
Sodium 140 mmol/L (135-145) 01/05/24 11:53
Potassium 3.8 mmol/L (3.5-5.1) 01/05/24 11:53
Chloride 111 mmol/L (98-107) H 01/05/24 11:53
Carbon Dioxide 22 mmol/L (22-30) 01/05/24 11:53
BUN 24 mg/dl (7-17) H 01/05/24 11:53
Creatinine 0.8 mg/dL (0.6-1.0) 01/05/24 11:53
Calcium 9.7 mg/dl (8.4-10.2) 01/05/24 11:53
Total Bilirubin 0.2 mg/dl (0.2-1.3) 01/05/24 11:53
AST 21 U/L (14-36) 01/05/24 11:53
ALT 22 U/L (0-35) 01/05/24 11:53
Alkaline Phosphatase 67 U/L (38-126) 01/05/24 11:53
Lipase 1115 U/L (23-300) H* 01/05/24 11:53
Diagnostic Image Results:
Prior GI Procedures:
EGD:
Colonoscopy:
Assessment / Plan
-
The patient is a 68-year-old female with h/o afib, known PFO, asthma, GERD, and diverticulitis complicated by abscess s/p sigmoidectomy, and recent left renal infarct thought to be from an embolic event who returns to hospital with recurrent and
worsening left flank pain associated with nausea w/o vomiting. Noted to have elevated lipase 1115.
Impression / Rec:
1. Elevated lipase - consulted for evaluation elevated lipase, which is > 3x ULN (1115). Her symptoms are predominantly left flank pain. She denies severe epigastric pain boring down to her back. Denies vomiting. She tolerated her solid
breakfast today without vomiting. Her repeat CT abd with IV contrast on admission showed normal pancreas w/o stranding or other stigmata of inflammation. Normal LFT. RUQ US done, reviewed by me and I do not see any cholelithiasis/sludge. She
does not meet the criteria for dx of acute pancreatitis. Her elevated lipase is likely from alternate etiology, such as ischemia (bowel/mesentery) given her recent renal infarct. Her abdominal exam is fairly benign and her pain isn't excruciating
thus doubt she has mesenteric ischemia. Regardless, I doubt she is having acute pancreatitis. Manage renal infarct as per vascular surgery. Can start regular diet from GI standpoint. GI s/o, pls call with questions.
Total Time Spent with Patient (in minutes): 55
-
-
Thank you for consultation and allowing me to participate in the patient's care. Please call the admissions coordinator GI physician during the after hours with any questions or concerns.
[2024-01-05 18:14] LABS: Triglycerides 173 mg/dl (10-149)
[2024-01-05 18:21] VITALS: BP 123/60
[2024-01-05 18:22] VITALS: BMI 32.3
[2024-01-05] MEDS: DILAUDID 0.75 MG IV ×2 (18:34→21:38)
[2024-01-05] MEDS: LR 1000 IV (18:36)
--- NOTE | 2024-01-05 18:37 | PTCARENOTE ---
Rec'd Pt from ED to Room 414-1. Pt is AAOx3. Oriented to room with call tamez in place.
[2024-01-05] MEDS: FLOVENT 44 MCG INHALER INH (19:35)
[2024-01-05] MEDS: ELIQUIS 5 MG PO (20:12)
[2024-01-05] MEDS: OSCAL 500 + D PO ×2 (20:12→20:13)
[2024-01-05] MEDS: ZOFRAN 4 MG IV (20:23)
[2024-01-05 21:36] VITALS: BP 128/67
[2024-01-05] MEDS: LOW STRENGTH ASPIRIN 81 MG PO (21:39)
[2024-01-05] MEDS: NEURONTIN 600 MG PO (21:39)
[2024-01-05] MEDS: CELEXA 20 MG PO (21:40)
[2024-01-05] MEDS: NORVASC 2.5 MG PO (21:40)
[2024-01-05] MEDS: NORVASC 5 MG PO (21:40)
[2024-01-05] MEDS: ZETIA 10 MG PO (21:41)
[2024-01-05] MEDS: DESYREL 200 MG PO (21:41)
[2024-01-05] MEDS: TOPAMAX 200 MG PO (21:43)
[2024-01-06] MEDS: DILAUDID 0.75 MG IV ×5 (00:43→21:14)
[2024-01-06] MEDS: LR 1000 IV ×3 (00:46→11:19)
[2024-01-06] MEDS: TYLENOL 650 MG PO ×4 (05:47→22:37)
[2024-01-06 06:16] LABS: Hematocrit 42.6 % (37.0-47.0); Hemoglobin 13.9 g/dL (12.0-16.0); Mean Corp Hgb Conc. 32.6 g/dL (33.0-37.0); Mean Corpuscular Hgb 29.8 pg (27.0-31.0); Mean Corpuscular Volume 91.2 fL (81.0-99.0); Mean Platelet Volume 8.2 fL (7.4-10.4); Platelet Count 302 10^3/uL (130-400); Red Blood Cell Count 4.67 10^6/uL (4.20-5.40); Red Cell Dist. Width 12.2 % (11.5-14.5); White Blood Cell Count 7.3 10^3/uL (4.8-10.8)
[2024-01-06 06:56] LABS: Amylase 109 U/L (30-110); Blood Urea Nitrogen 16 mg/dl (7-17); C-Reactive Protein < 5.00 mg/L (0.0-10.00); Calcium 9.6 mg/dl (8.4-10.2); Carbon Dioxide 28 mmol/L (22-30); Chloride 107 mmol/L (98-107); Estimated Creatinine Clearance 90 ml/min; Glucose 97 mg/dl (70-99); HDL Cholesterol 72 mg/dl; LDL Cholesterol, Calculated 52 mg/dl; Lipase 331 U/L (23-300); Potassium 4.4 mmol/L (3.5-5.1); Sodium 141 mmol/L (135-145); Total Cholesterol 156 mg/dl (50-199); Triglyceride 164 mg/dl (10-149); Very Low Density Lipoprotein 32 mg/dl (0-30); eGFR > 60.00
[2024-01-06 07:54] VITALS: BP 122/76
[2024-01-06] MEDS: ZOFRAN 4 MG IV (08:20)
[2024-01-06] MEDS: FLOVENT 44 MCG INHALER 2 PUFF INH ×2 (09:15→19:04)
[2024-01-06] MEDS: ELIQUIS PO (10:00)
[2024-01-06] MEDS: OSCAL 500 + D PO ×2 (10:08→21:12)
[2024-01-06] MEDS: COMPAZINE 10 MG IV ×3 (11:10→22:37)
[2024-01-06] MEDS: PROTONIX PO (11:21)
--- NOTE | 2024-01-06 12:12 | CM ---
Patient seen, initial assessment completed. Patient reports she was just here and nothing has changed from her last admission. Per CM note from 12/25/23, patient resides alone in a one story home, no steps to enter. Patient denies DME, has had VN in
the past, unsure with who, [facility] in past. Patient PCP Dr. Matta, pharmacy [facility] in [facility]. CM will continue to follow for discharge planning needs.
Plan; home no needs likely.
[2024-01-06] MEDS: LR IV (15:57)
[2024-01-06 16:08] VITALS: BP 111/72
--- NOTE | 2024-01-06 16:43 | W.PN.HOSP.TC ---
Today's Communication/Plan
-
advance diet
stop IVF
stop MRI
Assessment / Plan
Assessment / Plan
pt is a 68 year old female
left flank pain possible acute pancreatitis (as per GI does not meet criteria for acute pancreatitis)--lipase elevated at 1100, CT scan but formally read as negative, US pending--not commented on on CT scan)--apprec GI--cancel MRI
abdomen/MRCP--advance to low fat diet--cont dilaudid but pt says not working--stop IVF--compazine prn for n/v
Left renal infract--recent admission for this--cont Eliquis
History of PFO--follows cardiology at [place]
History of asthma--Not in acute exacerbation--Nebulizers from home will be continued--Breo continued
GERD--PPI continued
Essential hypertension--Blood pressure stable--Norvasc continued
History of anxiety and depression/insomnia--We will continue citalopram, trazodone, and Topamax
Hyperlipidemia--Zetia continued--Pravastatin on hold
Type 2 diabetes--Hold metformin and hold SSI for now
Code status--Full code
DVT prophylaxis--Eliquis
Anticipated Discharge: 24 - 48 hours
Subjective/Interval History
-
Date of Service: January 06, 2024
pt hungry and wants to eat
Objective Data
-
Labs:
Laboratory Results
01/06/24
05:35
WBC 7.3
Hgb 13.9
Hct 42.6
Plt Count 302
Sodium 141
Potassium 4.4
Chloride 107
Carbon Dioxide 28
BUN 16
Creatinine 0.7
Glucose 97
Calcium 9.6
Vital Signs:
max temp for 24 hours
01/05/24
10:55
Temp 99.5 F
Vital Signs
Temp Pulse Resp BP Pulse Ox
99.2 F 59 16 111/72 95
01/06/24 16:08 01/06/24 16:08 01/06/24 16:08 01/06/24 16:08 01/06/24 16:08
I&O
01/05/24 01/06/24 01/07/24
06:59 06:59 06:59
Intake Total 0 / 0
Output Total 1000 / 1000 925 / 925
Balance -1000 / -1000 -925 / -925
Review of Systems
-
All other systems: Reviewed and negative
Physical Exam
-
General: Well Developed, Well Nourished and No Apparent Distress
HEENT: Normocephalic and Atraumatic
Respiratory: Clear to Auscultation; Negative Wheezes or Rhonchi
Cardiac: Regular Rhythm and S1/S2; Negative Murmur
GI: Soft, Nontender, Nondistended and Normal Bowel Sounds
Musculoskeletal: No Clubbing, No Cyanosis and No Edema
Neuro: Awake
[2024-01-06] MEDS: PROTONIX 40 MG PO (20:32)
[2024-01-06] MEDS: ELIQUIS 5 MG PO (21:11)
[2024-01-06] MEDS: CELEXA 20 MG PO (21:12)
[2024-01-06] MEDS: LOW STRENGTH ASPIRIN 81 MG PO (21:13)
[2024-01-06] MEDS: NORVASC 5 MG PO (21:13)
[2024-01-06] MEDS: NEURONTIN 600 MG PO (21:13)
[2024-01-06] MEDS: DESYREL 200 MG PO (21:13)
[2024-01-06] MEDS: NORVASC 2.5 MG PO (21:14)
[2024-01-06] MEDS: TOPAMAX 200 MG PO (21:14)
[2024-01-06] MEDS: ZETIA 10 MG PO (21:14)
[2024-01-06 22:00] VITALS: BP 125/67
[2024-01-07] MEDS: DILAUDID 0.75 MG IV ×4 (00:37→12:10)
[2024-01-07] MEDS: TYLENOL 650 MG PO (05:43)
[2024-01-07] MEDS: COMPAZINE 10 MG IV ×2 (05:45→12:09)
[2024-01-07 07:30] VITALS: BP 97/52
[2024-01-07 07:45] LABS: Hematocrit 39.7 % (37.0-47.0); Mean Corp Hgb Conc. 32.7 g/dL (33.0-37.0); Mean Corpuscular Volume 91.7 fL (81.0-99.0); Mean Platelet Volume 8.4 fL (7.4-10.4); Platelet Count 274 10^3/uL (130-400); Red Blood Cell Count 4.33 10^6/uL (4.20-5.40); White Blood Cell Count 6.1 10^3/uL (4.8-10.8)
[2024-01-07] MEDS: PROTONIX 40 MG PO (08:20)
[2024-01-07] MEDS: OSCAL 500 + D 500 MG PO (08:20)
[2024-01-07] MEDS: ELIQUIS 5 MG PO (08:20)
[2024-01-07 08:27] LABS: Lipase 176 U/L (23-300)
[2024-01-07] MEDS: FLOVENT 44 MCG INHALER 2 PUFF INH (09:02)
[2024-01-07 09:14] LABS: ALT (SGPT) 20 U/L (0-35); AST (SGOT) 21 U/L (14-36); Albumin 4.7 g/dl (3.5-5.0); Alkaline Phosphatase 64 U/L (38-126); Blood Urea Nitrogen 14 mg/dl (7-17); Calcium 9.8 mg/dl (8.4-10.2); Carbon Dioxide 24 mmol/L (22-30); Chloride 107 mmol/L (98-107); Estimated Creatinine Clearance 78 ml/min; Glucose 122 mg/dl (70-99); Magnesium 2.1 mg/dl (1.6-2.3); Potassium 4.5 mmol/L (3.5-5.1); Sodium 138 mmol/L (135-145); Total Bilirubin 0.6 mg/dl (0.2-1.3); Total Protein 7.4 g/dl (6.3-8.2); eGFR > 60.00
[2024-01-07] MEDS: FLOMAX 0.400000000000000022 MG PO (13:02)
--- NOTE | 2024-01-07 13:13 | W.PN.HOSP.TC ---
Today's Communication/Plan
-
hopeful d/c later this afternoon
Assessment / Plan
Assessment / Plan
pt is a 68 year old female
left flank pain possible acute pancreatitis (as per GI does not meet criteria for acute pancreatitis)--lipase elevated at 1100 and now WNL, CT scan but formally read as negative, US normal--apprec GI--cancel MRI abdomen/MRCP--advance to low fat diet
urinary retention--estrada placed 01/05 for ~900mls in bladder--start flomax and remove estrada--TOV--if OK can d/c
Left renal infract--recent admission for this--cont Eliquis--pain control
History of PFO--follows cardiology at [place]
History of asthma--Not in acute exacerbation--Nebulizers from home will be continued--Breo continued
GERD--PPI continued
Essential hypertension--Blood pressure stable--Norvasc continued
History of anxiety and depression/insomnia--We will continue citalopram, trazodone, and Topamax
Hyperlipidemia--Zetia continued--Pravastatin on hold
Type 2 diabetes--Hold metformin and hold SSI for now
Code status--Full code
DVT prophylaxis--Eliquis
Anticipated Discharge: Today
Subjective/Interval History
-
Date of Service: January 07, 2024
nursing reports pt taking her dilaudid and compazine every 3 hours religiously
Objective Data
-
Labs:
Laboratory Results
01/07/24 01/07/24
06:47 08:13
WBC 6.1
Hgb 13.0
Hct 39.7
Plt Count 274
Sodium Cancelled 138
Potassium Cancelled 4.5
Chloride Cancelled 107
Carbon Dioxide Cancelled 24
BUN Cancelled 14
Creatinine Cancelled 0.8
Glucose Cancelled 122 H
Calcium Cancelled 9.8
Total Bilirubin Cancelled 0.6
AST Cancelled 21
ALT Cancelled 20
Alkaline Phosphatase Cancelled 64
Vital Signs:
max temp for 24 hours
01/06/24
16:08
Temp 99.2 F
Vital Signs
Temp Pulse Resp BP Pulse Ox
97.7 F 54 18 97/52 92
01/07/24 07:30 01/07/24 09:05 01/07/24 09:05 01/07/24 07:30 01/07/24 09:05
I&O
01/06/24 01/07/24 01/08/24
06:59 06:59 06:59
Intake Total 0 / 0 3630 / 3630
Output Total 1000 / 1000 4125 / 4125
Balance -1000 / -1000 -495 / -495
Review of Systems
-
All other systems: Reviewed and negative
Physical Exam
-
General: Well Developed, Well Nourished and No Apparent Distress
HEENT: Normocephalic and Atraumatic
Respiratory: Clear to Auscultation; Negative Wheezes or Rhonchi
Cardiac: Regular Rhythm and S1/S2; Negative Murmur
GI: Soft, Nontender, Nondistended and Normal Bowel Sounds
Musculoskeletal: No Clubbing, No Cyanosis and No Edema
Neuro: Awake
--- NOTE | 2024-01-07 14:05 | CM ---
CM reviewed chart with Hospitalist, possible discharge today. Patient seen bedside, reviewed IMM, signed, placed in chart. CM will continue to follow for discharge planning needs.
Plan; home no needs.
--- NOTE | 2024-01-07 14:17 | PTCARENOTE ---
Addendum entered by Margarita Lewis RN 01/07/24 15:49:
Pt voided 75ml and then scanned for 210ml. Dr. Ayers aware and pt discharged.
Original Note:
Pt medicated with Flomax 0.4mg po as ordered at 1302. Nuno d/c'ed at 1402 1 hour after Flomax given. Pt instructed to call after voiding so bladder scan can be done. Will continue to monitor.
[2024-01-07 15:38] VITALS: BP 97/64
--- NOTE | 2024-01-07 17:24 | W.DCSUMMARY ---
Discharge Summary
Discharge Data
Date of Admission: 01/05/24
Date of Discharge: 01/07/24
-
Pending Results: No
Hospital Course
Primary care physician : Tosin Matta
Principal Discharge diagnosis : Left flank pain with elevated lipase, urinary retention
Chronic Discharge diagnosis : Left renal infarct, history of patent foramen ovale, history of asthma, gastroesophageal reflux disease, essential hypertension, anxiety and depression/insomnia, hyperlipidemia, type 2 diabetes mellitus
Hospital Course : Patient was a 68-year-old female with a past medical history of atrial fibrillation, known PFO, recently diagnosed with left renal infarct thought to be from an embolic event presenting back to the emergency department for
worsening left flank pain. Patient had the pain since the discharge but worsened over the few days prior to admission. Patient was nauseous. Denied vomiting, diarrhea, constipation. Workup found her to have an elevated lipase and the patient was
admitted.
Problem #1: Left flank pain with elevated lipase. Patient was admitted and initially treated for acute pancreatitis. This included NPO and aggressive IV fluids. Lipase was 1100 at admission and now within normal limits. CAT scan formally read as
negative, ultrasound also read as negative. GI was consulted. Patient initially was for an MRI of the abdomen and MRCP but after evaluation by GI the patient does not meet criteria for acute pancreatitis. They feel the lipase elevation is due to
the previous renal infarct. Patient's diet was advanced and she was tolerating a low-fat diet. Unfortunately, patient was continuing to ask for IV Dilaudid every 3 hours and IV Compazine every 3 hours religiously.
Problem #2: Urinary retention. Patient was found to be retaining urine at approximately 900 mL by bladder scan. Patient had been straight cathed and Nuno catheter was placed. Flomax was started and patient did have successful trial of voiding.
Patient was not discharged home with a Nuno catheter but was discharged on Flomax for 2 weeks.
Problem #3: All other medical issues. These include Left renal infarct, history of patent foramen ovale, history of asthma, gastroesophageal reflux disease, essential hypertension, anxiety and depression/insomnia, hyperlipidemia, type 2 diabetes
mellitus. These medical issues were stable during her hospitalization. Medications were continued as able.
Patient was transitioned to oral Compazine and oral Dilaudid at discharge. She is stable for discharge home at this time. If there are any questions regarding this dictation or her hospital stay, please not hesitate to call. Our office number is
[phone].
Important imaging findings :
CT SCAN ABDOMEN/PELVIS IMPRESSION:
1). Subacute 3 cm left renal infarct
2). Diverticuli are present in the colon with no CT evidence of diverticulitis
3). Rectosigmoid anastomosis
ULTRASOUND IMPRESSION: Normal.
Discharge Plan
-
Patient Disposition: Home (Routine Discharge)
Discharge Diagnosis/Procedures: Left flank pain with elevated lipase from previous left renal infarct, urinary retention, history of patent foramen ovale, history of asthma, gastroesophageal reflux disease, essential hypertension, anxiety depression
insomnia, hyperlipidemia, type 2 diabetes mellitus
Condition: Good
Diet: Diabetic, Carb Controlled
Activity: As tolerated
Driving Restrictions: No driving while on narcotic pain medications
Bathing Restrictions: None
Referrals:
Tosin Matta, DO [Family Provider] - in less than 1 week
Prescriptions:
New
tamsulosin 0.4 mg Capsule
0.4 mg PO DAILY Qty: 14 0RF
acetaminophen 325 mg Tablet
650 mg PO Q6HPRN PRN (Reason: mild pain/ fever>100.5F) Qty: 0 0RF
hydromorphone [Dilaudid] 2 mg tablet
2 mg PO Q6H PRN (Reason: severe pain) Qty: 14 0RF
prochlorperazine maleate [Compazine] 10 mg tablet
10 mg PO Q8H PRN (Reason: n/v) Qty: 14 0RF
Continued
topiramate 100 MG tablet
200 mg PO HS
citalopram 20 MG tablet
20 mg PO HS
trazodone 100 MG tablet
200 mg PO HS
albuterol sulfate 2.5 mg /3 mL (0.083 %) solution for nebulization
2.5 mg inhalation R Q6HPRN PRN (Reason: sob/wheezing)
amlodipine 5 mg Tablet
7.5 mg PO HS
Rx Instructions:
TAKEN W/ 2.5MG = 7.5MG
Arnuity Ellipta 100 mcg/actuation blister with device
1 inh INHALATION R HS
metformin 500 mg tablet
500 mg PO DAILY
gabapentin 600 mg tablet
600 mg PO HS
pravastatin 40 mg tablet
40 mg PO HS
Hold Instructions: Resume on 01/08/24. resume after repeating your Liver function test
calcium carbonate-vitamin D3 600 mg-5 mcg (200 unit) Tablet
1 tab PO BID
omeprazole 40 mg capsule,delayed release(DR/EC)
40 mg PO DAILY
aspirin 81 mg Tablet,Chewable
81 mg PO HS
ergocalciferol (vitamin D2) 1,250 mcg (50,000 unit) capsule
1,250 unit PO MO
ezetimibe 10 mg tablet
10 mg PO HS
ondansetron 4 mg Tablet,Disintegrating
4 mg PO Q6HPRN PRN (Reason: nausea)
Eliquis 5 mg tablet
5 mg PO BID Qty: 60 0RF
Discharge Orders:
Discharge Patient (As Directed); Ordered 01/07/24
Ordered By: Daisy Ayers
Discharge Date and Time
Discharge Date/Time: 01/07/24 15:54
Print Language: POLISH
== END 2024-01-07 15:54 | disposition home or self-care (01) | DRG 439 ==
LOC: 4 WEST ACU 15:47
PROVIDERS: Physician Assistant Medical; Registered Nurse; ADMITTING PHYSICIAN Internal Medicine; CONSULT PHYSICIAN Internal Medicine Gastroenterology; EMERGENCY PHYSICIAN Emergency Medicine; FAMILY PHYSICIAN Family Medicine
DX: K85.90 Acute pancreatitis without necrosis or infection, unspecified (principal); N28.0 Ischemia and infarction of kidney; Q21.12 Patent foramen ovale; K21.9 Gastro-esophageal reflux disease without esophagitis; I10 Essential (primary) hypertension; F32.A Depression, unspecified; F41.9 Anxiety disorder, unspecified; E78.00 Pure hypercholesterolemia, unspecified; E11.51 Type 2 diabetes mellitus with diabetic peripheral angiopathy without gangrene; R33.8 Other retention of urine; J45.909 Unspecified asthma, uncomplicated; Z79.84 Long term (current) use of oral hypoglycemic drugs
CPT/HCPCS: 74177; 76700; 80048; 80053; 80061; 81003; 81015; 82150; 83690; 83735; 84478; 84484; 85025; 85027; 86140; 87086; 93005; 94640; 96374; 96375; 99285; Q9967

== ENCOUNTER 2024-07-11 14:48 | Emergency (ER) | payer MEDICARE, SELFPAY ==
[2024-07-11 14:50] VITALS: BP 132/91
[2024-07-11 15:16] LABS: % Basophils 0.5 % (0-2); % Eosinophils 0.8 % (0-6); % Immature Granulocytes 0.3 % (0-0.5); % Lymphocytes 45.3 % (20.5-51.1); % Monocytes 7.3 % (1.7-9.3); % Neutrophils 45.8 % (42.2-75.2); Absolute Eosinophils 0.1 10^3/uL (0-0.7); Absolute Lymphocytes 3.6 10^3/uL (1.2-3.4); Absolute Monocytes 0.6 10^3/uL (0.1-0.6); Absolute Neutrophils 3.6 10^3/uL (1.4-6.5); Hematocrit 41.4 % (37.0-47.0); Hemoglobin 14.3 g/dL (12.0-16.0); Mean Corp Hgb Conc. 34.5 g/dL (33.0-37.0); Mean Corpuscular Hgb 30.7 pg (27.0-31.0); Mean Corpuscular Volume 88.8 fL (81.0-99.0); Mean Platelet Volume 8.4 fL (7.4-10.4); Nucleated Red Blood Cells % 0 %; Platelet Count 235 10^3/uL (130-400); Red Blood Cell Count 4.66 10^6/uL (4.20-5.40); Red Cell Dist. Width 12.3 % (11.5-14.5); White Blood Cell Count 7.9 10^3/uL (4.8-10.8)
[2024-07-11 15:23] LABS: ALT (SGPT) 19 U/L (0-35); AST (SGOT) 21 U/L (14-36); Albumin 4.9 g/dl (3.5-5.0); Alkaline Phosphatase 53 U/L (38-126); Blood Urea Nitrogen 18 mg/dl (7-17); Calcium 9.6 mg/dl (8.4-10.2); Carbon Dioxide 18 mmol/L (22-30); Chloride 109 mmol/L (98-107); Glucose 111 mg/dl (70-99); Potassium 3.9 mmol/L (3.5-5.1); Sodium 144 mmol/L (135-145); Total Bilirubin 0.3 mg/dl (0.2-1.3); Total Protein 7.6 g/dl (6.3-8.2); eGFR > 60.00
--- NOTE | 2024-07-11 18:23 | ED.GENMED ---
History of Present Illness
General
Chief Complaint: Flank Pain
Source: patient
Exam Limitations: none
Time Seen by Provider: 07/11/24 18:16
History of Present Illness
History of Present Illness:
See MDM
Past History
Past History
ED Past Medical History: Arrthythmia, GERD, HTN, Other (Diverticulosis, arthritis, anxiety, depression, UTI, GERD) and Other (Patent foramen ovale)
ED Past Surgical History: Bowel resection, Gynecological, Orthopedic, Tonsilectomy and Other (Breast reduction, hysterectomy)
Social History
Tobacco: Non-smoker
Alcohol: None
Drug: None
Personal: Single
Living: with family
Family History
Family History: Other (Noncontributory); Negative CAD or Cancer
Phy Exam
Physical Exam
Physical Exam:
See MDM
Course
Orders/Labs/Results
Orders:
Orders
07/11/24 14:53
Urinalysis Reflex To Culture Urgent
Date Specimen was Collected: 07/11/24
Time Specimen was Collected: 14:54
07/11/24 14:58
CMP [Comprehensive Metabolic Panel] Urgent
Complete Blood Count/With Diff Urgent
07/11/24 18:17
CT Abd/pelvis W Iv Cont Urgent
Comment: hx renal infarct
Reason For Exam: Left flank pain
07/11/24 20:47
Oxycodone/Acetaminophen [Percocet 5/325] 1 tablet PO NOW STA
Abnormal Lab Results
07/11/24
14:58
Absolute Lymphs (auto) 3.6 H 10^3/uL
(1.2-3.4)
Chloride 109 H mmol/L
(98-107)
Carbon Dioxide 18 L mmol/L
(22-30)
BUN 18 H mg/dl
(7-17)
Glucose 111 H mg/dl
(70-99)
07/11/24 14:58
07/11/24 14:58
Vital Signs
Initial and Last Documented VS:
Initial Vital Signs
Temp Pulse Resp BP Pulse Ox
97.8 F 81 16 132/91 95
07/11/24 14:50 07/11/24 14:50 07/11/24 14:50 07/11/24 14:50 07/11/24 14:50
Last Documented Vital Signs
Temp Pulse Resp BP Pulse Ox
97.8 F 81 16 132/91 95
07/11/24 14:50 07/11/24 14:50 07/11/24 14:50 07/11/24 14:50 07/11/24 14:50
MDM/Problems Addressed
Differential Diagnosis Includes:
HPI and MDM Narrative:
69-year-old female presenting for evaluation of left flank pain. Patient states she is nervous because the last time she had similar pain, she was diagnosed with a renal infarct. At that time, she was found to have a PFO which has since been
repaired. She claims compliance with Eliquis. She does admit that she had recent lifting and is unsure if this is musculoskeletal pain or kidney pain again
On exam, there is very mild left flank pain. Given her history, will obtain CT with contrast
Physical exam
General: Well appearing and non-toxic
HEENT: protecting airway
Neck: appears supple
CV: No evidence of cyanosis
Resp: No accessory muscle use
Abd: Non-distended
BackL Mild Left flank pain
Extremities: No deformities
Neuro: alert
Psych: Normal affect
Skin: Intact
Problems Addressed including Acute and Chronic Conditions affecting care:
1. Left flank pain
Acuity: acute
Prognosis: stable
Details: Given her prior history of renal infarct, will obtain CT with IV contrast
Updates
CT shows scarring of both kidneys but no acute infarct. We did discuss the concern for worsening hiatal hernia. Patient acknowledged. Discussed likely musculoskeletal pain and return precautions
Differential Diagnosis (but not limited to): Renal infarct, kidney stone, musculoskeletal strain
Testing considered: Renal ultrasound
Drug therapy (if applicable): OTC meds, please see d/c instruction regarding Rx drugs
Amount and/or Complexity of Data Reviewed
Clinical info obtained from: Patient
External data reviewed: Prior history of renal infarct and PFO.
Labs I independently reviewed (but not limited to): Cr normal
Radiology: The CT scan was personally and independently reviewed. In addition, official CT report reviewed.
Pulse Ox: not hypoxic
EKG independently reviewed: N/A
Medical Clinic Manager: N/A
Critical Care: N/A
Risk of Complication:
Social Determinants of health: Good social support
Discussed with other providers: N/A
Escalation of Care includes Admit/Obs: After being observed in the Emergency Department, pt stable for discharge.
Occasional wrong word or 'sound a like' substitutions may have occurred due to the inherent limitations of voice recognition software. Read the chart carefully and recognize, using context, where substitutions have occurred.
*Critical Care Note
Total Time (30-74mins, 75-104mins- exclusive of procedures): Not Applicable
ED Attending Note
-
Portions of this chart may have been created with voice recognition software.� Occasional wrong word or��sound alike� substitutions may have occurred due to the inherent limitations of voice recognition software.
Discharge Plan
Departure
Patient Disposition: Home (Routine Discharge)
Date of Disposition: 07/11/24
Time of Disposition: 20:48
Patient with high blood pressure during this ER visit?: No
Discharge Problem:
Back strain
Instructions: Back Muscle Strain
Prescriptions:
No Action
topiramate 100 MG tablet
200 mg PO HS
citalopram 20 MG tablet
20 mg PO HS
trazodone 100 MG tablet
200 mg PO HS
albuterol sulfate 2.5 mg /3 mL (0.083 %) solution for nebulization
2.5 mg inhalation R Q6HPRN PRN (Reason: sob/wheezing)
amlodipine 5 mg Tablet
7.5 mg PO HS
Rx Instructions:
TAKEN W/ 2.5MG = 7.5MG
Arnuity Ellipta 100 mcg/actuation blister with device
1 inh INHALATION R HS
metformin 500 mg tablet
500 mg PO DAILY
gabapentin 600 mg tablet
600 mg PO HS
pravastatin 40 mg tablet
40 mg PO HS
calcium carbonate-vitamin D3 600 mg-5 mcg (200 unit) Tablet
1 tab PO BID
omeprazole 40 mg capsule,delayed release(DR/EC)
40 mg PO DAILY
aspirin 81 mg Tablet,Chewable
81 mg PO HS
ergocalciferol (vitamin D2) 1,250 mcg (50,000 unit) capsule
1,250 unit PO MO
ezetimibe 10 mg tablet
10 mg PO HS
ondansetron 4 mg Tablet,Disintegrating
4 mg PO Q6HPRN PRN (Reason: nausea)
tamsulosin 0.4 mg Capsule
0.4 mg PO DAILY Qty: 14 0RF
acetaminophen 325 mg Tablet
650 mg PO Q6HPRN PRN (Reason: mild pain/ fever>100.5F) Qty: 0 0RF
hydromorphone [Dilaudid] 2 mg tablet
2 mg PO Q6H PRN (Reason: severe pain) Qty: 14 0RF
prochlorperazine maleate [Compazine] 10 mg tablet
10 mg PO Q8H PRN (Reason: n/v) Qty: 14 0RF
Eliquis 5 mg tablet
5 mg PO BID Qty: 60 0RF
Referrals:
Tosin Matta DO [Family Provider] -
Activity Restrictions/Additional Instructions:
Please return for any worsening symptoms.
You may return at any time if you have further concerns.
Please follow up with your doctor at the first available appointment, preferably this week.
Thank you for choosing [facility].
Discharge Date and Time
Print Language: NEPALESE
[2024-07-11] MEDS: PERCOCET 5/325 1 TABLET PO (21:00)
== END 2024-07-11 21:23 | disposition home or self-care (01) ==
LOC: EMR 14:48
PROVIDERS: Student in an Organized Health Care Education/Training Program; EMERGENCY PHYSICIAN Student in an Organized Health Care Education/Training Program; FAMILY PHYSICIAN Family Medicine
DX: S39.012A Strain of muscle, fascia and tendon of lower back, initial encounter (principal); X50.9XXA Other and unspecified overexertion or strenuous movements or postures, initial encounter; I10 Essential (primary) hypertension; K21.9 Gastro-esophageal reflux disease without esophagitis; Z90.710 Acquired absence of both cervix and uterus; Z90.49 Acquired absence of other specified parts of digestive tract; Z86.79 Personal history of other diseases of the circulatory system; Z79.01 Long term (current) use of anticoagulants
CPT/HCPCS: 99284; 74177; 80053; 85025; Q9967

== ENCOUNTER 2024-08-17 07:15 | Emergency (ER) | payer MEDICARE, SELFPAY ==
[2024-08-17 07:19] VITALS: BP 113/86
--- NOTE | 2024-08-17 07:54 | ED.GENMED ---
History of Present Illness
General
Chief Complaint: Abdominal Symptoms
Time Seen by Provider: 08/17/24 07:45
History of Present Illness
History of Present Illness:
Patient is a 69-year-old woman with history of diverticulitis, UTIs, asthma presenting to the emergency department abdominal pain. Patient states for the past 5 days she has been having runny diarrhea. She states that since the past 2 days it has
improved and she has having more formed stool. She is also had a fever with her last fever yesterday. She also notes that has been having foul-smelling urine. She has been having abdominal soreness as well as ongoing nausea. She has been having
limited p.o. secondary to the nausea and the discomfort. No cough congestion runny nose. No chest pain or difficulty breathing. No blood in her stool. No sick contacts. No recent travel. She does state that all this started after Thanksgiving.
Past History
Past History
ED Past Medical History: Arrthythmia, GERD, HTN, Other (Diverticulosis, arthritis, anxiety, depression, UTI, GERD) and Other (Patent foramen ovale)
ED Past Surgical History: Bowel resection, Gynecological, Orthopedic, Tonsilectomy and Other (Breast reduction, hysterectomy)
Social History
Tobacco: Non-smoker
Alcohol: None
Drug: None
Personal: Single
Living: with family
Family History
Family History: Other (Noncontributory); Negative CAD or Cancer
Phy Exam
Physical Exam
Physical Exam:
GENERAL: in no acute distress
HEENT: normocephalic, extraocular movements intact, moist oral mucosa
NECK: normal inspection
RESPIRATORY: no respiratory distress, clear to auscultation bilaterally
CARDIOVASCULAR: regular rate and rhythm
ABDOMEN/: soft, non-distended, diffuse tenderness to palpation but worse in the right upper and right lower, no rebound or guarding
EXTREMITIES: non-tender, no edema/swelling
NEUROLOGIC: awake and alert, moves all extremities
SKIN: warm
Course
Orders/Labs/Results
Orders:
Orders
08/17/24 07:52
Dicyclomine [Bentyl] 10 mg PO NOW STA
08/17/24 07:53
CT Abd/pelvis W Iv Cont Urgent
Comment:
Reason For Exam: diarrhea, abdominal pain
08/17/24 07:54
0.9% Sodium Chloride 1000 ml [Nss] 1,000 ml IV BOLUS
08/17/24 08:01
Ondansetron Injectable [Zofran] 4 mg IV NOW STA
08/17/24 08:02
Complete Blood Count/With Diff Urgent
Comprehensive Metabolic Panel Urgent
08/17/24 10:29
Urinalysis Reflex To Culture Urgent
Date Specimen was Collected: 08/17/24
Time Specimen was Collected: 10:28
Urine Microscopic Reflex Cult Urgent
08/17/24 11:04
Amoxicillin 875 mg/Clav 125 mg [Augmentin 875 mg/125 mg] 1 tablet PO NOW STA
Abnormal Lab Results
08/17/24 08/17/24
08:02 10:29
Immature Gran % 0.6 H %
(0-0.5)
Monocytes % 10.1 H %
(1.7-9.3)
Leukocyte Esterase Rfl Trace A
(Negative)
08/17/24 08:02
08/17/24 08:02
Vital Signs
Initial and Last Documented VS:
Initial Vital Signs
Temp Pulse Resp BP Pulse Ox
98.1 F 75 18 113/86 98
08/17/24 07:19 08/17/24 07:19 08/17/24 07:19 08/17/24 07:19 08/17/24 07:19
Last Documented Vital Signs
Temp Pulse Resp BP Pulse Ox
97.6 F 68 20 115/76 96
08/17/24 08:22 08/17/24 10:30 08/17/24 10:30 08/17/24 10:30 08/17/24 10:30
MDM/Problems Addressed
Differential Diagnosis Includes:
Patient is a 69-year-old woman presenting to the emergency department with abdominal pain diarrhea and fevers that have mostly improved but is still having some residual symptoms. Differential consists of viral infection or diverticulitis or UTI.
Certainly could have metabolic derangements given the profuse diarrhea. Will check blood work urine and CT scan. Will give IV fluids. Will pain control.
*Critical Care Note
Total Time (30-74mins, 75-104mins- exclusive of procedures): Not Applicable
Update Note
Update Note:
On reevaluation patient's nausea has improved. She is tolerating p.o. CT scan consistent with diverticulitis. Will treat with antibiotics. Will give first dose here. Strict return precautions given. Will discharge at this time.
ED Attending Note
-
Portions of this chart may have been created with voice recognition software.� Occasional wrong word or��sound alike� substitutions may have occurred due to the inherent limitations of voice recognition software.
Discharge Plan
Departure
Patient Disposition: Home (Routine Discharge)
Date of Disposition: 08/17/24
Time of Disposition: 11:04
Patient with high blood pressure during this ER visit?: No
Discharge Problem:
Diverticulitis
Instructions: Diverticulitis (DC)
Prescriptions:
New
amoxicillin-pot clavulanate 875-125 mg tablet
1 tab PO TID 7 Days Qty: 21 0RF
No Action
topiramate 100 MG tablet
200 mg PO HS
citalopram 20 MG tablet
20 mg PO HS
trazodone 100 MG tablet
200 mg PO HS
albuterol sulfate 2.5 mg /3 mL (0.083 %) solution for nebulization
2.5 mg inhalation R Q6HPRN PRN (Reason: sob/wheezing)
amlodipine 5 mg Tablet
7.5 mg PO HS
Rx Instructions:
TAKEN W/ 2.5MG = 7.5MG
Arnuity Ellipta 100 mcg/actuation blister with device
1 inh INHALATION R HS
metformin 500 mg tablet
500 mg PO DAILY
gabapentin 600 mg tablet
600 mg PO HS
pravastatin 40 mg tablet
40 mg PO HS
calcium carbonate-vitamin D3 600 mg-5 mcg (200 unit) Tablet
1 tab PO BID
omeprazole 40 mg capsule,delayed release(DR/EC)
40 mg PO DAILY
aspirin 81 mg Tablet,Chewable
81 mg PO HS
ergocalciferol (vitamin D2) 1,250 mcg (50,000 unit) capsule
1,250 unit PO MO
ezetimibe 10 mg tablet
10 mg PO HS
ondansetron 4 mg Tablet,Disintegrating
4 mg PO Q6HPRN PRN (Reason: nausea)
acetaminophen 325 mg Tablet
650 mg PO Q6HPRN PRN (Reason: mild pain/ fever>100.5F) Qty: 0 0RF
prochlorperazine maleate [Compazine] 10 mg tablet
10 mg PO Q8H PRN (Reason: n/v) Qty: 14 0RF
Eliquis 5 mg tablet
5 mg PO BID Qty: 60 0RF
Referrals:
Tosin Matta DO [Family Provider] -
Activity Restrictions/Additional Instructions:
You were seen in the Emergency Department today for abdominal pain. While you were here we performed blood work, which was reassuring. You are found to have diverticulitis and started on antibiotics.
We would like for you to follow up with your primary care physician for further evaluation. If you experience fever, worsening of your symptoms, or develop any other new or concerning symptoms, please return to the Emergency Department immediately.
Please see the attached sheet for additional information.
Interventions
Interventions:
*Risk Screen - Suicide Last Done: 08/17/24 07:19
*General Assessment Last Done: 08/17/24 07:19
*Neglect/Abuse Screening Last Done: 08/17/24 07:19
ED- Fall Risk Assessment Last Done: 08/17/24 08:22
*ED COVID-19 Vaccine History Last Done: 08/17/24 08:22
JA-Riomfz-Mocbfoztct Assessment Last Done: 08/17/24 08:22
Discharge Date and Time
Print Language: MICRONESIAN
[2024-08-17 08:01] VITALS: BP 159/112
[2024-08-17 08:06] VITALS: BMI 33.6
[2024-08-17] MEDS: BENTYL 10 MG PO (08:15)
[2024-08-17] MEDS: ZOFRAN 4 MG IV (08:15)
[2024-08-17] MEDS: NSS 1000 IV (08:15)
[2024-08-17 08:22] VITALS: BP 109/97
[2024-08-17 08:30] LABS: % Basophils 0.5 % (0-2); % Immature Granulocytes 0.6 % (0-0.5); % Lymphocytes 34.3 % (20.5-51.1); % Monocytes 10.1 % (1.7-9.3); % Neutrophils 53.5 % (42.2-75.2); Absolute Eosinophils 0.1 10^3/uL (0-0.7); Absolute Lymphocytes 2.1 10^3/uL (1.2-3.4); Absolute Monocytes 0.6 10^3/uL (0.1-0.6); Absolute Neutrophils 3.3 10^3/uL (1.4-6.5); Hemoglobin 13.6 g/dL (12.0-16.0); Mean Corp Hgb Conc. 33.2 g/dL (33.0-37.0); Mean Corpuscular Hgb 30.4 pg (27.0-31.0); Mean Corpuscular Volume 91.7 fL (81.0-99.0); Mean Platelet Volume 8.8 fL (7.4-10.4); Nucleated Red Blood Cells % 0 %; Platelet Count 220 10^3/uL (130-400); Red Blood Cell Count 4.47 10^6/uL (4.20-5.40); Red Cell Dist. Width 11.9 % (11.5-14.5); White Blood Cell Count 6.2 10^3/uL (4.8-10.8)
[2024-08-17 08:38] LABS: ALT (SGPT) 16 U/L (0-35); AST (SGOT) 21 U/L (14-36); Albumin 4.4 g/dl (3.5-5.0); Alkaline Phosphatase 46 U/L (38-126); Blood Urea Nitrogen 16 mg/dl (7-17); Calcium 9.4 mg/dl (8.4-10.2); Carbon Dioxide 23 mmol/L (22-30); Chloride 107 mmol/L (98-107); Estimated Creatinine Clearance 90 ml/min; Glucose 98 mg/dl (70-99); Potassium 4.3 mmol/L (3.5-5.1); Sodium 144 mmol/L (135-145); Total Bilirubin 0.8 mg/dl (0.2-1.3); Total Protein 7.1 g/dl (6.3-8.2); eGFR > 60.00
[2024-08-17 09:30] VITALS: BP 110/81
--- NOTE | 2024-08-17 09:40 | EDRN ---
the pt pressed the call tamez and this RN entered the pts room, the pt stated that she needed to use the bathroom, the pt was able to ambulate to the bathroom and back to the stretcher with no issues, no c/o pain, no s/s of distress, the pt is
resting in stretcher in the lowest position, side rails up x1, HOB elevated, call tamez within reach, will continue to monitor the pt closely
--- NOTE | 2024-08-17 10:15 | EDRN ---
the pt was brought back from CT scan and needed to go to the bathroom, the pt was able to ambulate to the bathroom and back to the stretcher within no issues, the pt denies needing anything at this time however the pt stated to this RN, 'Apparently
i need to make an appointment to get a nurse around here', this RN stated to the pt that this RN has been each time she pressed the call tamez and asked the pt if she needed anything and the pt stated, 'Yeah you should be checking on me to make sure
that i'm okay', this RN apologized to the pt that the pt felt that this RN was not checking on her enough, the pt is resting in stretcher in the lowest position, side rails up x1, HOB elevated, no s/s of distress, will continue to monitor the pt
closely
[2024-08-17 10:30] VITALS: BP 115/76
--- NOTE | 2024-08-17 10:36 | EDRN ---
the pt pressed the call tamez and stated that she needed to go to the bathroom, the pt provided a urine sample and it was sent to the lab, will continue to monitor the pt closely
[2024-08-17 10:44] LABS: Urine Albumin Negative (Neg - Trace); Urine Bilirubin Negative (Negative); Urine Character Clear (Clear); Urine Color Yellow; Urine Glucose Negative (Negative); Urine Ketone Negative (Negative); Urine Leukocyte Trace (Negative); Urine Nitrite Negative (Negative); Urine Occult Blood Negative (Negative); Urine Urobilinogen Negative (Neg - 1+)
--- NOTE | 2024-08-17 10:57 | EDRN ---
Dr. Cuevas currently at the pts bedside
[2024-08-17 10:59] LABS: Urine Mucus Many; Urine Squamous Cell 16-20 /LPF (Few)
[2024-08-17 11:00] LABS: Urine Amorphous Seen
[2024-08-17 11:01] LABS: Urine Red Blood Cell 0-2 /HPF (0-2)
[2024-08-17] MEDS: AUGMENTIN 875 MG/125 MG 1 TABLET PO (11:15)
== END 2024-08-17 11:19 | disposition home or self-care (01) ==
LOC: EMR 07:15
PROVIDERS: EMERGENCY PHYSICIAN Student in an Organized Health Care Education/Training Program; FAMILY PHYSICIAN Family Medicine
DX: K57.32 Diverticulitis of large intestine without perforation or abscess without bleeding (principal); Z87.440 Personal history of urinary (tract) infections; J45.909 Unspecified asthma, uncomplicated
CPT/HCPCS: 99285; 96374; 96361; 74177; 80053; 81003; 81015; 85025; Q9967